=== PATIENT | female | born 1940 | race Caucasian/White ===

== ENCOUNTER 2016-05-19 21:34 | Inpatient (IN) | payer SELFPAY ==
[~2016-05-19] VITALS: Ht 154.9 cm; Wt 58.0 kg
[~2016-05-19 21:34] MED LIST: ADVAI100I PO; DIOV160T60 PO; DUONI INH; LEVA750T PO; LORA1TAB PO; NEBUMIS6 INH; NORV10TA PO; PRED10 PO; PRED5PAK PO; PROT40TA PO; SALBUTAMOL INH; SPIRCAP INH; VENL150T14 PO; Z.0.OXYGENDME NC
[2016-05-19 21:36] VITALS: BP 175/85; PULSE 120; RESP 40; TEMP 98.9; O2SAT 93; O2SAT 95
[2016-05-19 21:40] VITALS: O2SAT 97
[2016-05-19] MEDS ORDERED: AZITHROMYCIN INJ 500 MG in SODIUM CHLOR 0.9% 250 ML INJ 250 ML IV STA (21:41)
[2016-05-19] MEDS ORDERED: CEFEPIME INJ 2,000 MG in SODIUM CHLORIDE 0.9% INJ 100 ML IV STA (21:41)
[2016-05-19] MEDS ORDERED: methylPREDNISolone SOD SUCC 125 MG/2 ML VIAL IV ONE (21:45)
[2016-05-19] MEDS ORDERED: LORazepam 2 MG/ML VIAL IV PUSH ONE (21:45)
[2016-05-19] MEDS ORDERED: MOXI1TAB2 PO (21:46)
[2016-05-19] MEDS ORDERED: ADVA250A INH (21:46)
[2016-05-19] MEDS ORDERED: PRED5TAB PO (21:46)
[2016-05-19] MEDS ORDERED: VENL150T PO (21:46)
[2016-05-19] MEDS ORDERED: VALS1TAB64 PO (21:46)
[2016-05-19] MEDS ORDERED: LORA1TAB12 PO (21:46)
[2016-05-19] MEDS ORDERED: PANT40TA3 PO (21:46)
[2016-05-19] MEDS ORDERED: SODIUM CHLOR 0.9% 1000 ML INJ 1,000 ML IV ONE ×2 (21:52)
[2016-05-19] MEDS ORDERED: SODIUM CHLOR 0.9% 1000 ML INJ 100 ML IV ONE (21:52)
--- NOTE | 2016-05-19 21:52 | PD ---
HPI Chief Complaint: Respiratory Symptoms Time Seen by Provider: 21:41 Travel History International Travel<30 days: No Contact w/Intl Traveler<30days: No Traveled to known affect area: No History of Present Illness HPI Patient is a 76-year-old female with history of COPD, lung cancer still smoking here with complaint of shortness of breath. History is limited due to her respiratory distress. From what I can gather patient had 2 days of increasing cough, shortness of breath, wheezing and respiratory distress. EMS arrived and noticed patient tachypneic with diffuse wheezing bilaterally. Given albuterol 2, 125 mg Solu-Medrol. Little improvement of her symptoms en route. Patient notes subjective fevers last night. PFSH Past Medical History Arthritis: Yes Asthma: Yes Autoimmune Disease: No Anxiety: Yes Depression: Yes Heart Rhythm Problems: No Cancer: Yes (LUNG) Cardiovascular Problems: Yes High Cholesterol: No Chemotherapy: No Chest Pain: No Congestive Heart Failure: No COPD: Yes Cerebrovascular Accident: No Diabetes: No Diminished Hearing: No Endocrine: No GERD: Yes Genitourinary: No Hiatal Hernia: No Hypertension: Yes Immune Disorder: No Kidney Stones: No Musculoskeletal: Yes Neurologic: Yes Psychiatric: Yes Reproductive: No Respiratory: Yes Migraines: No Radiation Therapy: Yes Renal Failure: No Seizures: Yes Sickle Cell Disease: No Sleep Apnea: No Thyroid Disease: No Ulcer: No Past Surgical History Abdominal Surgery: Yes (1990 lining of stomach) AICD: No Arteriovenous Shunt: No Cardiac Surgery: No Ear Surgery: No Endocrine Surgery: No Eye Surgery: No Gynecologic Surgery: Yes (DNC's) Insulin Pump: No Joint Replacement: No Oral Surgery: No Pacemaker: No Thoracic Surgery: No Social History Alcohol Use: Yes (2-3 RUM DRINKS, DAILY; LAST DRINK 02/09/15) Tobacco Use: Yes (1/2 PPD) Substance Use: No Allergies-Medications (Allergen,Severity, Reaction): Coded Allergies: Codeine (Verified Allergy, Severe, SEIZURE, 02/10/15) Reported Meds & Prescriptions Reported Meds & Active Scripts Active Reported Venlafaxine ER 24 HR (Venlafaxine HCl) 150 Mg Tab 150 Mg PO DAILY Lorazepam 1 Mg Tab 1 Mg PO Q8H PRN Moxifloxacin (Moxifloxacin HCl) 400 Mg Tab 400 Mg PO DAILY Pantoprazole (Pantoprazole Sodium) 40 Mg Tab 40 Mg PO BID Prednisone 5 Mg Tab 5 Mg PO DAILY Valsartan 80 Mg Tab 80 Mg PO DAILY Advair Diskus Inh (Fluticasone-Salmeterol Inh) 250-50 Mcg/Blist Aer 2 Puff INH BID Rinse mouth after use. Review of Systems Except as stated in HPI: all other systems reviewed are Neg Physical Exam Narrative GENERAL: Thin female in moderate to severe respiratory distress SKIN: Warm and dry. HEAD: Normocephalic. EYES: No scleral icterus. No injection or drainage. ENT: Mucous membranes pink and moist. NECK: Supple CARDIOVASCULAR: Tachycardic with heart rate in the 120s, regular rhythm. No murmur appreciated. RESPIRATORY: Moderate to severe respiratory distress with tachypnea, prolonged expiratory phase. Speaking in one to 2 word sentences. Diffuse wheezing bilaterally. GASTROINTESTINAL: Abdomen soft, non-tender, nondistended. MUSCULOSKELETAL: No edema. NEUROLOGICAL: Awake and alert. Normal speech. PSYCHIATRIC: Anxious Data Data Last Documented VS Vital Signs Date Time Temp Pulse Resp B/P Pulse Ox O2 Delivery O2 Flow Rate FiO2 05/19/16 23:00 114 35 160/69 97 BiPAP 05/19/16 21:40 50 05/19/16 21:36 98.9 Orders Electrocardiogram (05/19/16 21:41) Complete Blood Count With Diff (05/19/16 21:41) Prothrombin Time / Inr (Pt) (05/19/16 21:41) Act Partial Throm Time (Ptt) (05/19/16 21:41) Lactic Acid Sepsis Protocol (05/19/16 21:41) Magnesium (Mg) (05/19/16 21:41) Troponin I (05/19/16 21:41) Influenzae A/B Antigen (05/19/16 21:41) Blood Culture (05/19/16 21:41) Chest, Single Ap (05/19/16 21:41) Arterial Blood Gas (Abg) (05/19/16 21:41) Ecg Monitoring (05/19/16 21:41) Iv Access Insert/Monitor (05/19/16 21:41) Oximetry (05/19/16 21:41) Cefepime Inj (Maxipime Inj) (05/19/16 21:41) Azithromycin Inj (Zithromax Inj) (05/19/16 21:41) Albuterol-Ipratropium Neb (Duoneb Neb) (05/19/16 21:45) Methylprednisolone So Succ Inj (Solumedr (05/19/16 21:45) Basic Metabolic Panel (Bmp) (05/19/16 21:41) Resp Bipap / Cpap Non Invas Vt (05/19/16 21:41) Lorazepam Inj (Ativan Inj) (05/19/16 21:45) Sodium Chlor 0.9% 1000 Ml Inj (Ns 1000 M (05/19/16 21:52) Sodium Chlor 0.9% 1000 Ml Inj (Ns 1000 M (05/19/16 21:52) Sodium Chlor 0.9% 1000 Ml Inj (Ns 1000 M (05/19/16 21:52) Labs Laboratory Tests Test 05/19/16 22:00 White Blood Count 10.4 TH/MM3 Red Blood Count 4.26 MIL/MM3 Hemoglobin 13.8 GM/DL Hematocrit 40.1 % Mean Corpuscular Volume 94.1 FL Mean Corpuscular Hemoglobin 32.4 PG Mean Corpuscular Hemoglobin 34.5 % Concent Red Cell Distribution Width 12.7 % Platelet Count 380 TH/MM3 Mean Platelet Volume 8.1 FL Neutrophils (%) (Auto) 65.0 % Lymphocytes (%) (Auto) 20.4 % Monocytes (%) (Auto) 12.4 % Eosinophils (%) (Auto) 1.9 % Basophils (%) (Auto) 0.3 % Neutrophils # (Auto) 6.8 TH/MM3 Lymphocytes # (Auto) 2.1 TH/MM3 Monocytes # (Auto) 1.3 TH/MM3 Eosinophils # (Auto) 0.2 TH/MM3 Basophils # (Auto) 0.0 TH/MM3 CBC Comment DIFF FINAL Differential Comment Prothrombin Time 10.7 SEC Prothromb Time International 1.0 RATIO Ratio Activated Partial 32.2 SEC Thromboplast Time Blood Gas Puncture Site RT RADIAL Blood Gas Patient Temperature 98.6 Blood Gas HCO3 27 mmol/L Blood Gas Base Excess 0.3 mmol/L Blood Gas Oxygen Saturation 96 % Arterial Blood pH 7.26 Arterial Blood Partial 61 mmHg Pressure CO2 Arterial Blood Partial 321 mmHG Pressure O2 Arterial Blood Oxygen Content 18.8 Vol % Arterial Blood 1.5 % Carboxyhemoglobin Arterial Blood Methemoglobin 2.1 % Blood Gas Hemoglobin 13.4 G/DL Oxygen Delivery Device BIPAP Blood Gas Ventilator Setting IPAP12 EPAP6 Blood Gas Inspired Oxygen 100 % Sodium Level 135 MEQ/L Potassium Level 4.1 MEQ/L Chloride Level 98 MEQ/L Carbon Dioxide Level 30.5 MEQ/L Anion Gap 7 MEQ/L Blood Urea Nitrogen 10 MG/DL Creatinine 1.30 MG/DL Estimat Glomerular Filtration 40 ML/MIN Rate Random Glucose 115 MG/DL Lactic Acid Level 0.7 mmol/L Calcium Level 9.1 MG/DL Magnesium Level 1.6 MG/DL Troponin I LESS THAN 0.02 NG/ML MDM Medical Decision Making Medical Screen Exam Complete: Yes Emergency Medical Condition: Yes Medical Record Reviewed: Yes Differential Diagnosis 76-year-old female with history of COPD, lung cancer still smoking here with 2 days of increasing shortness of breath, cough and chest congestion. Differential includes COPD exacerbation, hypoxic versus hypercapnic respiratory failure, pneumonia, bronchitis, influenza, pneumothorax, pulmonary embolism arrhythmia, symptomatic anemia, ACS. Narrative Course Patient placed on monitor, IV established and blood obtained. She was placed on BiPAP therapy. Given 1 mg Ativan IV for compliance with BiPAP mask. Given DuoNeb is in-line with BiPAP therapy and empirically treated with cefepime, azithromycin. She retired patient received Solu-Medrol per EMS. CBC, BMP, coags, lactate, magnesium, troponin, influenza, blood cultures, ABG were obtained and notable for respiratory acidosis with pH 7.26, PCO2 61, PO2 321, bicarbonate 27. Portable chest x-ray obtained that by my read shows no acute abnormalities. Twelve-lead EKG shows sinus tachycardia without notable ST abnormalities, normal intervals. Patient felt significantly improved after the above therapy and her work of breathing, wheezing has improved. Patient will be admitted for further management. Critical Care Narrative Aggregate critical care time was 45 minutes. Time to perform other separately billable procedures was not included in the critical care time. My time did not include minutes spent treating any other patients simultaneously or on activities that did not directly contribute to the patient's treatment. The services I provided to this patient were to treat and/or prevent clinically significant deterioration that could result in: Cardio pulmonary decompensation , , disability I provided critical care services requiring my management, as noted below: Chart data review, documentation time, medication orders and management, vital sign assessments/reviewing monitor data, ordering and reviewing lab tests, ordering and interpreting/reviewing x-rays and diagnostic studies, care of the patient and discussion of the patient with the admitting physicians. Sepsis Criteria SIRS Criteria (2 or more): Heart rate over 90, RR > 20 or PaCO2 < 32 Sepsis Criteria (SIRS+source): Infect source susp/known Criteria Outcome: Meets SIRS criteria, Meets sepsis criteria Diagnosis Primary Impression: Hypercapnic respiratory failure Qualified Code: J96.02 - Acute respiratory failure with hypercapnia Additional Impressions: COPD exacerbation Sepsis Qualified Code: A41.9 - Sepsis, due to unspecified organism Respiratory distress Admitting Information Admitting Physician Requests: Admit Judie Herrera MD May 19, 2016 21:51
[2016-05-19] MEDS: RESP: ALBUTEROL 2.5 MG/IPRATROPIUM 0.5 MG NEB (SCH) INH (21:57)
--- NOTE | 2016-05-19 22:17 | RADRPT ---
EXAM DATE/TIME: 05/19/2016 22:04 [facility] COMPARISON: CHEST SINGLE AP, February 11, 2015, 13:13. INDICATIONS : Shortness of breath. MEDICAL HISTORY : Carcinoma, lung. Chronic obstructive pulmonary disease. Emphysema. SURGICAL HISTORY : None. ENCOUNTER: Initial ACUITY: 2 days PAIN SCORE: 0/10 LOCATION: chest FINDINGS: A single view of the chest demonstrates scattered parenchymal scarring similar in appearance to Janob er 2014. No new consolidation or effusion. Heart size normal. CONCLUSION: 1. Scattered parenchymal scarring similar to January 2015, especially in the upper lungs. No new infi ltrate or effusion. Martin Nguyen MD on May 19, 2016 at 22:11 Board Certified Radiologist. This report was verified electronically.
[2016-05-19 22:26] LABS: AUTOMATED NEUTROPHIL # 6.8 TH/MM3 (1.8-7.7); BASOPHIL % 0.3 % (0.0-2.0); EOSINOPHIL # 0.2 TH/MM3 (0-0.4); EOSINOPHIL % 1.9 % (0.0-4.0); HEMATOCRIT 40.1 % (35.0-46.0); HEMO FLAGS DIFF FINAL; LYMPH % 20.4 % (9.0-44.0); LYMPHOCYTE # 2.1 TH/MM3 (1.0-4.8); MEAN CELL VOLUME 94.1 FL (80.0-100.0); MEAN CORPUSCULAR HEMOGLOBIN 32.4 PG (27.0-34.0); MEAN CORPUSCULAR HGB CONC 34.5 % (32.0-36.0); MONO % 12.4 % (0.0-8.0); PLATELET COUNT 380 TH/MM3 (150-450); RED BLOOD COUNT 4.26 MIL/MM3 (4.00-5.30); RED CELL DISTRIBUTION WIDTH 12.7 % (11.6-17.2); WHITE BLOOD COUNT 10.4 TH/MM3 (4.0-11.0)
[2016-05-19 22:48] LABS: ANION GAP 7 MEQ/L (5-15); BICARBONATE 30.5 MEQ/L (21.0-32.0); BLOOD UREA NITROGEN 10 MG/DL (7-18); CHLORIDE 98 MEQ/L (98-107); GLOMERULAR FILTRATION RATE 40 ML/MIN (>89); MAGNESIUM 1.6 MG/DL (1.5-2.5); POTASSIUM 4.1 MEQ/L (3.5-5.1); SODIUM (NA) 135 MEQ/L (136-145)
[2016-05-19 22:55] LABS: APTT (PATIENT) 32.2 SEC (24.3-30.1); PROTHROMBIN TIME - PATIENT 10.7 SEC (9.8-11.6)
[2016-05-19 22:59] VITALS: BP 137/63; PULSE 107; RESP 36; O2SAT 96
[2016-05-19 23:00] VITALS: BP 160/69; PULSE 114; RESP 35; O2SAT 97
[2016-05-19 23:01] LABS: BLOOD GAS BASE EXCESS 0.3 mmol/L (-2-2); BLOOD GAS CARBOXYHEMOGLOBIN 1.5 % (0-4); BLOOD GAS HCO3 27 mmol/L (22-26); BLOOD GAS METHEMOGLOBIN 2.1 % (0-2); BLOOD GAS O2 HGB SATURATION 96 % (90-100); BLOOD GAS OXYGEN CONTENT 18.8 Vol % (12.0-20.0); BLOOD GAS PCO2 61 mmHg (38-42); BLOOD GAS PO2 321 mmHG (61-120); BLOOD GAS TOTAL HGB 13.4 G/DL (12.0-16.0); TEMP CORR TO 98.6
[2016-05-19 23:02] LABS: CRITICAL VALUE YES; DRAW SITE RT RADIAL; NUMBER OF ARTERIAL PUNCTURES 1; OXYGEN DEVICE BIPAP; STAT YES; ULNAR PULSE PRESENT; VENT SETTINGS IPAP12 EPAP6
[2016-05-19 23:04] LABS: FIO2 100 %
[2016-05-19 23:51] LABS: BLOOD GAS CARBOXYHEMOGLOBIN 1.4 % (0-4); BLOOD GAS HCO3 23 mmol/L (22-26); BLOOD GAS METHEMOGLOBIN 1.9 % (0-2); BLOOD GAS O2 HGB SATURATION 92 % (90-100); BLOOD GAS OXYGEN CONTENT 16.3 Vol % (12.0-20.0); BLOOD GAS PCO2 58 mmHg (38-42); BLOOD GAS PO2 88 mmHG (61-120); BLOOD GAS TOTAL HGB 12.6 G/DL (12.0-16.0); DRAW SITE RT RADIAL; FIO2 35 %; NUMBER OF ARTERIAL PUNCTURES 1; OXYGEN DEVICE BIPAP; STAT YES; TEMP CORR TO 98.6; ULNAR PULSE PRESENT; VENT SETTINGS IPAP=12 EPAP=6
[2016-05-19 23:52] LABS: CRITICAL VALUE YES
[2016-05-20] VITALS (22 sets, daily range): BP systolic 119–169; BP diastolic 55–73; PULSE 63–109; RESP 18–35; TEMP 96.7–98; O2SAT 92–99
--- NOTE | 2016-05-20 00:21 | HHI.HP ---
[facility] Service Critical Care Medicine Primary Care Physician Naveed Lopez MD Admission Diagnosis hypercapnic respiratory failure, COPD exacerbation Diagnosis: Travel History International Travel<30 Days: No Contact w/Intl Traveler <30 Da: No Traveled to Known Affected Are: No History of Present Illness History somewhat limited because patient is on Bipap. Removed briefly to clarify code status but she was tachypneic and unable to provide a lot of detail regarding medical history. 76-year-old female with a past medical history of COPD, ongoing tobacco abuse, lung cancer who presents to [facility] emergency department with 2 day history of shortness of breath and cough. She states the cough has been productive of yellow and green sputum. Denies fever. Denies chest pain or hemoptysis. Denies recent travel, leg pain or swelling, or history of VTE. She received Solu-Medrol 125 mg IV. [facility]. She was given hour-long continuous DuoNeb in the ED, cefepime, azithromycin, Ativan 1 mg IV, normal saline 3 L bolus.. She was placed on BiPAP 03/20 with initial FiO2 of 100% for hypercapnic respiratory failure with pH 7.26/PaCO2 of 61/PaCO2 of 321. FiO2 has been weaned and she is currently on 03/20 with FiO2 35% getting tidal volumes in the 200s. Her repeat ABG demonstrates a pH of 7.22/ PaCO2 58/PA O2 of 88. She reports subjective improvement. She indicates that she would desire intubation if needed. Review of Systems ROS Limitations: Clinical Condition Respiratory: COMPLAINS OF: Cough, Wheezing, Sputum production, Shortness of breath Past Family Social History Allergies: Coded Allergies: Codeine (Verified Allergy, Severe, SEIZURE, 02/10/15) Past Medical History CKD stage III COPD Hypertension Depression Anxiety GERD Tobacco abuse Lung cancer Colitis RUL lung nodule on CT chest 02/13/15. Reportedly she was treated for lung cancer with radiation therapy in [place] in December 2015. She states that her terminal clerk and oncologist are in [place]. She states she has also been followed by palliative care in [place]. She states she is not under hospice care. She states that she has full code Past Surgical History She has had an open abdominal surgery, unclear what was done. D and C Reported Medications Prednisone 5 mill grams by mouth daily Valsartan 80 g by mouth daily Venlafaxine ER 150 mg by mouth daily Ativan 1 mg by mouth every 8 hours when necessary anxiety Advair 250/50 micrograms 2 puffs inhaled twice a day Pantoprazole 40 g by mouth twice a day Moxifloxacin 40 mg by mouth daily Family History Unable to obtain family medical history due to patients clinical condition. Social History She has smoked since age 14-1/2 previously smoked one pack per cigarettes per day. Ongoing smoking. She states she is down to 6 cigarettes per day Denies use of illicit drugs She lives in [place] and [place] in [place]. Physical Exam Vital Signs Vital Signs Date Time Temp Pulse Resp B/P Pulse Ox O2 Delivery O2 Flow Rate FiO2 05/19/16 23:00 114 35 160/69 97 BiPAP 05/19/16 22:59 107 36 137/63 96 BiPAP 05/19/16 21:40 97 50 05/19/16 21:36 40 95 BiPAP 05/19/16 21:36 40 95 BiPAP 05/19/16 21:36 98.9 120 40 175/85 93 Physical Exam Temp 98.9. Pulse 108 Respiratory rate 33 BP 169/69 sats 99% GENERAL: Well-nourished, well-developed patient who is laying in the ED gurney wrapped in multiple blankets around her head wearing BiPAP. SKIN: Warm and dry. HEAD: Atraumatic. Normocephalic. EYES: Pupils equal and round. No scleral icterus. No injection or drainage. ENT: BiPAP mask in place. NECK: Trachea midline. No JVD. CARDIOVASCULAR: Tachycardic, regular, sinus tach on the monitor.. No murmurs rubs or gallops. RESPIRATORY: Bilateral expiratory wheeze and prolonged expiration phase. No Rales or rhonchi. On BiPAP 12/6 with tidal volume mid 200s to 300. Adjusted to tidal volume 18/6 at bedside and obtaining vital tidal volume 350-400. GASTROINTESTINAL: Abdomen soft, non-tender, nondistended. There is an upper abdominal scar that is well-healed. Bowel sounds are present. MUSCULOSKELETAL: Extremities without clubbing, cyanosis, or edema. No calf tenderness or palpable cords. NEUROLOGICAL: Awake and answers questions though speech is limited due to respirations status. Moves all extremities without apparent focal deficit. Laboratory Laboratory Tests Test 05/19/16 05/19/16 22:00 23:45 White Blood Count 10.4 Red Blood Count 4.26 Hemoglobin 13.8 Hematocrit 40.1 Mean Corpuscular Volume 94.1 Mean Corpuscular Hemoglobin 32.4 Mean Corpuscular Hemoglobin 34.5 Concent Red Cell Distribution Width 12.7 Platelet Count 380 Mean Platelet Volume 8.1 Neutrophils (%) (Auto) 65.0 Lymphocytes (%) (Auto) 20.4 Monocytes (%) (Auto) 12.4 Eosinophils (%) (Auto) 1.9 Basophils (%) (Auto) 0.3 Neutrophils # (Auto) 6.8 Lymphocytes # (Auto) 2.1 Monocytes # (Auto) 1.3 Eosinophils # (Auto) 0.2 Basophils # (Auto) 0.0 CBC Comment DIFF FINAL Differential Comment Prothrombin Time 10.7 Prothromb Time International 1.0 Ratio Activated Partial 32.2 Thromboplast Time Blood Gas Puncture Site RT RADIAL RT RADIAL Blood Gas Patient Temperature 98.6 98.6 Blood Gas HCO3 27 23 Blood Gas Base Excess 0.3 -4.0 Blood Gas Oxygen Saturation 96 92 Arterial Blood pH 7.26 7.22 Arterial Blood Partial 61 58 Pressure CO2 Arterial Blood Partial 321 88 Pressure O2 Arterial Blood Oxygen Content 18.8 16.3 Arterial Blood 1.5 1.4 Carboxyhemoglobin Arterial Blood Methemoglobin 2.1 1.9 Blood Gas Hemoglobin 13.4 12.6 Oxygen Delivery Device BIPAP BIPAP Blood Gas Ventilator Setting IPAP12 EPAP6 IPAP=12 EPAP=6 Blood Gas Inspired Oxygen 100 35 Sodium Level 135 Potassium Level 4.1 Chloride Level 98 Carbon Dioxide Level 30.5 Anion Gap 7 Blood Urea Nitrogen 10 Creatinine 1.30 Estimat Glomerular Filtration 40 Rate Random Glucose 115 Lactic Acid Level 0.7 Calcium Level 9.1 Magnesium Level 1.6 Troponin I LESS THAN 0.02 Date/Time Procedure Status Source Growth 05/19/16 22:00 Aerobic Blood Culture Received Blood Peripheral Pending 05/19/16 22:00 Anaerobic Blood Culture Received Blood Peripheral Pending Result Diagram: 05/19/16219905/19/162199 Assessment and Plan Assessment and Plan NEURO: Anxiety Depression Continue venlafaxine 150 mg by mouth daily Ativan if needed for Bipap tolerance. RESP: Acute respiratory failure Acute COPD exacerbation History of lung cancer Increased BiPAP settings to 18/6 to achieve target tidal volume of 350-400. Received Solu-Medrol 125 mg IV. [facility]. Continue Solu-Medrol 60 mg IV every 6 hours. DuoNeb every 4 hours. Albuterol every 2 hours when necessary. Antibiotics as per below. CV: Hypertension Monitor hemodynamics. Troponin negative. Lactic acid normal Hold home medication of valsartan 80 mg by mouth daily for now. Labetalol when necessary for systolic blood pressure greater than 160 GI: GERD Nothing by mouth for now. May require intubation FEN/RENAL: Chronic kidney disease stage III Mild asymptomatic hyponatremia Insert Nobles. Monitor I/O. Monitor electrolytes and replace as indicated per electrolyte replacement protocol. ID: Acute COPD exacerbation with acute bronchitis. Chest x-ray demonstrates no infiltrate. Empiric coverage with Levaquin for community acquired organisms. Follow up blood culture. Send sputum culture. HEME: Reported history of lung cancer status post radiation therapy in December 2015 performed in [place]. She denies active cancer. Monitor CBC. ENDO: Chronic steroid use Euglycemic Hold and is on 5 mill grams by mouth daily. Solumedrol as per above PROPH: Lovenox 40 mg subcutaneous daily for stress ulcer prophylaxis. Creatinine clearance is 44. Will adjust Lovenox dose of creatinine clearance drops below 30. Protonix 40 g IV daily for stress ulcer prophylaxis. ACCESS: Peripheral IV providing adequate access at this time. Full code Critical care time 60 minutes exclusive of separately billable procedures. Ariadne Clinton MD May 20, 2016 00:21
[2016-05-20] MEDS ORDERED: ACETAMINOPHEN 325 MG TAB PO PRN (00:30)
[2016-05-20] MEDS ORDERED: MISCELLANEOUS NURSING INFORMATION XX SCH (00:30)
[2016-05-20] MEDS ORDERED: ONDANSETRON HCL 4 MG/2 ML VIAL IV PRN (00:30)
[2016-05-20] MEDS ORDERED: CHLORHEXIDINE GLUCONATE 2 % 1 PACK (2 CLOTHS) TOP PRN (00:30)
[2016-05-20] MEDS ORDERED: RESP: ALBUTEROL 2.5 MG/IPRATROPIUM 0.5 MG NEB (SCH) NEB ONE (00:30)
[2016-05-20] MEDS: methylPREDNISolone SOD SUCC 125 MG/2 ML VIAL IV PUSH SCH ×4 (00:36→19:43)
[2016-05-20] MEDS ORDERED: MAGNESIUM SULFATE INJ 2 GM in SODIUM CHLORIDE 0.9% INJ 96 ML IV PRN (01:00)
[2016-05-20] MEDS ORDERED: MAGNESIUM OXIDE 400 MG TAB PO PRN (01:00)
[2016-05-20] MEDS ORDERED: POTASSIUM PHOSPHATE INJ 30 MMOL in SODIUM CHLOR 0.9% 250 ML INJ 250 ML IV PRN (01:00)
[2016-05-20] MEDS ORDERED: POTASSIUM CHLOR 20 MEQ PREMIX 100 ML IV PRN ×2 (01:00)
[2016-05-20] MEDS ORDERED: POTASSIUM CL 40 MEQ/30 ML LIQ UDC PO/TUBE PRN ×2 (01:00)
[2016-05-20] MEDS ORDERED: POTASSIUM PHOSPHATE MONOBASIC 500 MG TAB PO PRN (01:00)
[2016-05-20] MEDS ORDERED: MAGNESIUM SULFATE INJ 4 GM in SODIUM CHLORIDE 0.9% INJ 92 ML IV PRN (01:00)
[2016-05-20] MEDS ORDERED: POTASSIUM CHLOR 40 MEQ PREMIX 100 ML IV PRN ×2 (01:00)
[2016-05-20] MEDS ORDERED: POTASSIUM PHOSPHATE MONOBASIC 500 MG TAB PO/TUBE PRN (01:00)
[2016-05-20] MEDS ORDERED: SODIUM PHOSPHATE INJ 30 MMOL in SODIUM CHLOR 0.9% 250 ML INJ 240 ML IV PRN (01:00)
[2016-05-20] MEDS: ENOXAPARIN SODIUM 40 MG/0.4 ML SYRINGE SQ SCH (01:19)
[2016-05-20] MEDS: LEVOFLOXACIN 500 MG PREMIX INJ 100 ML IV SCH (01:19)
[2016-05-20] MEDS: RESP: ALBUTEROL 2.5 MG/IPRATROPIUM 0.5 MG NEB (SCH) INH ×5 (03:01→20:00)
[2016-05-20 03:13] LABS: BLOOD GAS CARBOXYHEMOGLOBIN 1.5 % (0-4); BLOOD GAS HCO3 24 mmol/L (22-26); BLOOD GAS O2 HGB SATURATION 93 % (90-100); BLOOD GAS OXYGEN CONTENT 16.5 Vol % (12.0-20.0); BLOOD GAS PCO2 49 mmHg (38-42); BLOOD GAS PO2 96 mmHG (61-120); BLOOD GAS TOTAL HGB 12.5 G/DL (12.0-16.0); CRITICAL VALUE NO; DRAW SITE RT RADIAL; FIO2 35 %; NUMBER OF ARTERIAL PUNCTURES 1; OXYGEN DEVICE BIPAP; STAT YES; TEMP CORR TO 98.6; ULNAR PULSE PRESENT; VENT SETTINGS IPAP=18 EPAP=6
[2016-05-20] MEDS: LORazepam 2 MG/ML VIAL IV PUSH PRN ×3 (03:20→16:25)
[2016-05-20] MEDS: CHLORHEXIDINE GLUCONATE 2 % 1 PACK (2 CLOTHS) TOP SCH (03:54)
[2016-05-20] MEDS ORDERED: DEXTROSE 50% IN WATER 50 ML VIAL(D50) IV PUSH PRN (09:15)
[2016-05-20] MEDS: INSULIN NovoLIN REGULAR SUPPLEMENTAL SCALE SQ SCH ×2 (09:15→12:00)
[2016-05-20] MEDS ORDERED: GLUCAGON 1 MG/ML VIAL OTHER PRN (09:15)
[2016-05-20] MEDS: DOCUSATE SODIUM 100 MG CAP PO SCH ×2 (09:49→19:43)
[2016-05-20] MEDS: SODIUM CHLORIDE 0.9% FLUSH 5 ML FLUSH IV FLUSH SCH ×2 (09:49→19:43)
[2016-05-20] MEDS: PANTOPRAZOLE SODIUM 40 MG VIAL IV SCH (09:49)
[2016-05-20] MEDS: SODIUM CHLOR 0.9% 1000 ML INJ 1,000 ML IV SCH ×2 (09:59→22:35)
[2016-05-20 10:59] LABS: BASOPHIL % 0.1 % (0.0-2.0); HEMATOCRIT 34.5 % (35.0-46.0); HEMO FLAGS DIFF FINAL; LYMPH % 7.9 % (9.0-44.0); LYMPHOCYTE # 0.6 TH/MM3 (1.0-4.8); MEAN CELL VOLUME 95.4 FL (80.0-100.0); MEAN CORPUSCULAR HEMOGLOBIN 33.4 PG (27.0-34.0); MONO % 2.1 % (0.0-8.0); NEUT % 89.9 % (16.0-70.0); PLATELET COUNT 305 TH/MM3 (150-450); RED BLOOD COUNT 3.62 MIL/MM3 (4.00-5.30); RED CELL DISTRIBUTION WIDTH 12.8 % (11.6-17.2); WHITE BLOOD COUNT 7.8 TH/MM3 (4.0-11.0)
[2016-05-20 11:11] LABS: BICARBONATE 25.5 MEQ/L (21.0-32.0); MAGNESIUM 1.5 MG/DL (1.5-2.5); POTASSIUM 4.2 MEQ/L (3.5-5.1)
--- NOTE | 2016-05-20 12:37 | EKG ---
Date Performed: 05/19/2016 Time Performed: 22:43:03 PTAGE: 76 years EKG: SINUS TACHYCARDIA POSSIBLE RIGHT VENTRICULAR CONDUCTION DELAY Since previous tracing, no si gnificant change noted ABNORMAL RHYTHM ECG PREVIOUS TRACING : 02/10/2015 11.54 DOCTOR: Garcia Mares Interpretating Date/Time 05/20/2016 12:36:02
--- NOTE | 2016-05-20 19:40 | MB ---
cc: EMILY SAL MD DATE OF CONSULTATION 05/20/[address] Wesley REASON FOR CONSULTATION Respiratory insufficiency. HISTORY OF THE PRESENT ILLNESS Ms. Beauchamp is a 76-year-old [place] female with history of CA of the lung, COPD, nicotine use. The patient came to the hospital with worsening of her shortness of breath. She has cough and congestion, has yellow-green sputum production. She gets very anxious. The patient was evaluated in the emergency room. She had a blood gas done which shows pH 7.26, PCO2 61, PO2 321. She was on 100% BiPAP, then she was weaned down to 35% BiPap and blood gas pH 7.30, pCO2 49, pO2 96. Now she is weaned to nasal cannula. Her CBC showed WBC count 7.8, hemoglobin 12.1, hematocrit 34.5, MCV 95, platelet count 305. Sodium 130, potassium 4.2, chloride 103, CO2 25, BUN 14, creatinine 1.18. IMAGING Her chest x-ray shows scattered parenchymal scarring in both lungs especially the upper lungs. No infiltrate or effusion. Currently the patient is sleeping and hard to wake. She just had a dose of Ativan. PAST MEDICAL HISTORY Significant for: 1. History of CA of the lung. 2. COPD. 3. Renal insufficiency. 4. Nicotine use. 5. She has received radiation treatment in [place]. MEDICATIONS She is currently takin. Insulin. 2. Protonix 40 mg a daily. 3. Colace 100 milligrams twice a day. 4. Albuterol/Atrovent nebulizer treatment. 5. Solu-Medrol 60 mg q.6h. 6. Levaquin 500 milligrams q.48-hour. 7. Potassium supplement. 8. Lovenox 40 mg a day. ALLERGIES SHE IS ALLERGIC TO CODEINE. SOCIAL HISTORY She has long history of smoking and continues to smoke. She is , lives with her ex-. She worked in customer service. FAMILY HISTORY She has five children. She has lost one child to cancer, it was a peritoneal cancer. REVIEW OF SYSTEMS She denies any weight loss. No headache or dizziness. No deep venous thrombosis or pulmonary embolism. PHYSICAL EXAMINATION GENERAL: Elderly female, mild short of breath. VITAL SIGNS: Blood pressure 164/73, heart rate 105, respiratory rate 18, temperature 98.8. HEENT: Examination pupils are equal and reactive. NECK: Supple. Jugular venous pulse not raised. CHEST: Expiratory rhonchi. CARDIOVASCULAR: S1-S2 normal. ABDOMEN: Soft. Nondistended. Bowel sounds are present. EXTREMITIES: No edema. IMPRESSION 1. COPD exacerbation. 2. Respiratory acidosis. 3. Respiratory insufficiency. 4. Cancer of the lung status post radiation. 5. Nicotine use. 6. Hypertension. PLAN She is on nasal cannula, currently stable. We will use CPAP at night time and as needed. Continue IV Solu-Medrol. Antibiotics. Monitor her electrolytes. Monitor her blood sugar. Wean from the steroids as she tolerates. Monitor blood sugar. Further treatment will depend on the course in the hospital. Thank you Dr. Wesley for this consultation. MD EBONI Santillan/RACIEL /5:34 PM /7:17 PM [facility]
[2016-05-21] VITALS (14 sets, daily range): BP systolic 132–169; BP diastolic 58–72; PULSE 91–108; RESP 24–46; TEMP 97.7–98.3; O2SAT 95–100
[2016-05-21] MEDS: methylPREDNISolone SOD SUCC 125 MG/2 ML VIAL IV PUSH SCH ×4 (00:35→18:20)
[2016-05-21] MEDS: ENOXAPARIN SODIUM 40 MG/0.4 ML SYRINGE SQ SCH (00:35)
[2016-05-21] MEDS: CHLORHEXIDINE GLUCONATE 2 % 1 PACK (2 CLOTHS) TOP SCH (04:00)
[2016-05-21] MEDS: RESP: ALBUTEROL 2.5 MG/IPRATROPIUM 0.5 MG NEB (SCH) INH ×7 (05:05→23:31)
[2016-05-21] MEDS: INSULIN NovoLIN REGULAR SUPPLEMENTAL SCALE SQ SCH ×4 (05:20→18:00)
[2016-05-21] MEDS: LORazepam 2 MG/ML VIAL IV PUSH PRN ×3 (05:43→18:20)
[2016-05-21 06:12] LABS: BASOPHIL # 0.1 TH/MM3 (0-0.2); BASOPHIL % 0.5 % (0.0-2.0); EOSINOPHIL % 0.1 % (0.0-4.0); HEMATOCRIT 36.5 % (35.0-46.0); HEMO FLAGS DIFF FINAL; LYMPH % 8.5 % (9.0-44.0); LYMPHOCYTE # 1.3 TH/MM3 (1.0-4.8); MEAN CELL VOLUME 96.2 FL (80.0-100.0); MEAN CORPUSCULAR HEMOGLOBIN 31.8 PG (27.0-34.0); MEAN CORPUSCULAR HGB CONC 33.1 % (32.0-36.0); NEUT % 85.9 % (16.0-70.0); PLATELET COUNT 338 TH/MM3 (150-450); RED BLOOD COUNT 3.79 MIL/MM3 (4.00-5.30); WHITE BLOOD COUNT 15.1 TH/MM3 (4.0-11.0)
[2016-05-21 06:36] LABS: BICARBONATE 27.3 MEQ/L (21.0-32.0); MAGNESIUM 1.8 MG/DL (1.5-2.5); POTASSIUM 4.2 MEQ/L (3.5-5.1)
[2016-05-21] MEDS: PANTOPRAZOLE SODIUM 40 MG VIAL IV SCH (09:12)
[2016-05-21] MEDS: SODIUM CHLORIDE 0.9% FLUSH 5 ML FLUSH IV FLUSH SCH ×2 (09:12→19:33)
[2016-05-21] MEDS: DOCUSATE SODIUM 100 MG CAP PO SCH ×2 (09:12→19:33)
--- NOTE | 2016-05-21 09:15 | HHI.PR ---
Subjective Remarks still with respiratory distress. on oxygen via N/C @ 3 lit/min. has occasional dry cough. no fever. Objective Vitals Vital Signs Date Time Temp Pulse Resp B/P Pulse Ox O2 Delivery O2 Flow Rate FiO2 05/21/16 08:19 95 Nasal Cannula 05/21/16 06:00 100 05/21/16 04:00 97.7 91 35 132/58 100 05/21/16 04:00 91 05/21/16 02:00 93 05/21/16 00:00 97.7 104 35 136/61 100 05/21/16 00:00 104 05/20/16 22:59 95 Nasal Cannula 3.00 05/20/16 22:00 104 05/20/16 20:00 97.8 101 35 157/73 92 05/20/16 20:00 101 05/20/16 18:00 109 05/20/16 16:00 105 05/20/16 15:00 97.9 109 35 164/73 96 05/20/16 14:00 103 05/20/16 12:00 103 05/20/16 11:00 98.0 63 25 133/72 94 05/20/16 10:00 99 05/20/16 09:13 96 Nasal Cannula 2.00 I/O 05/20/16 05/20/16 05/20/16 05/21/16 05/21/16 05/21/16 07:00 15:00 23:00 07:00 15:00 23:00 Intake Total 350 ml 1080 ml 600 ml Output Total 150 ml 250 ml Balance -150 ml 100 ml 1080 ml 600 ml Intake Oral 200 ml 480 ml IV Total 150 ml 600 ml 600 ml Output Urine Total 150 ml 250 ml # Voids 3 2 Result Diagram: 05/21/16 0552 05/21/16 0552 Imaging Last Impressions Chest X-Ray 05/19/16 214 Signed Impressions: Service Date/Time: Thursday, May 19, 2016 22:04 - CONCLUSION: 1. Scattered parenchymal scarring similar to January 2015, especially in the upper lungs. No new infiltrate or effusion. Martin Nguyen MD Objective Remarks GENERAL: with some respiratory distress. CARDIOVASCULAR: Regular rate and regular rhythm without murmurs, gallops, or rubs. RESPIRATORY: diminished air entry bilaterally with wheezing GASTROINTESTINAL: Abdomen soft, non-tender, nondistended. Normal, active bowel sounds MUSCULOSKELETAL: Extremities without clubbing, cyanosis, or edema. NEURO: Alert & Oriented x4 to person, place, time, situation. Moves all ext x4 Medications and IVs Current Medications Cefepime HCl 2000 mg/Sodium Chloride 100 ml @ 200 mls/hr ONCE STAT IV Last administered on 05/19/16 22:51; Start 05/19/16 at 21:41; Stop 05/19/16 at 22:10; Status DC Azithromycin/ Sodium Chloride (Zithromax Inj/ NS 250 ml Inj) 250 ml @ 250 mls/ hr ONCE STAT IV Last administered on 05/19/16 22:05; Start 05/19/16 at 21:41; Stop 05/19/16 at 22:40; Status DC Albuterol/ Ipratropium (Duoneb Neb) 1 ampule Q15M INH Last administered on 21:57; Start 05/19/16 at 21:45; Stop 05/19/16 at 22:16; Status DC Methylprednisolone Sodium Succinate (SoluMEDROL INJ) 125 mg ONCE ONCE IV ; Start 05/19/16 at 21:45; Stop 05/19/16 at 21:53; Status DC Lorazepam 1 mg 1 mg ONCE ONCE IV PUSH Last administered on 05/19/16 22:04; Start 05/19/16 at 21:45; Stop 05/19/16 at 21:46; Status DC Sodium Chloride 1,000 ml @ 1,000 mls/hr Q1H ONCE IV Last administered on 22:04; Start 05/19/16 at 21:52; Stop 05/19/16 at 22:51; Status DC Sodium Chloride 1,000 ml @ 1,000 mls/hr Q1H ONCE IV Last administered on 22:50; Start 05/19/16 at 21:52; Stop 05/19/16 at 22:51; Status DC Sodium Chloride (NS 1000 ml Inj) 100 ml @ 1,000 mls/hr Q6M ONCE IV Last administered on 05/19/16 23:51; Start 05/19/16 at 21:52; Stop 05/19/16 at 21:57; Status DC Albuterol/ Ipratropium (Duoneb Neb) 2 ampule ONCE ONCE NEB Last administered on 05/20/16 00:35; Start 05/20/16 at 00:30; Stop 05/20/16 at 00:31; Status DC Methylprednisolone Sodium Succinate (SoluMEDROL INJ) 60 mg Q6H IV PUSH Last administered on 05/21/16 05:14; Start 05/20/16 at 01:00 IV Flush (NS Flush) 2 ml UNSCH PRN IV FLUSH FLUSH AFTER USING IV ACCESS; Start 05/20/16 at 00:30 IV Flush (NS Flush) 2 ml BID IV FLUSH Last administered on 05/20/16 09:49; Start 05/20/16 at 09:00 Acetaminophen (Tylenol) 650 mg Q6H PRN PO PAIN 1-10 AND/OR FEVER >101F; Start 05/20/16 at 00:30 Pantoprazole Sodium (Protonix Inj) 40 mg DAILY IV Last administered on 09:49; Start 05/20/16 at 09:00 Ondansetron HCl (Zofran Inj) 4 mg Q6H PRN IV NAUSEA OR VOMITING; Start 05/20/16 at 00:30 Docusate Sodium (Colace) 100 mg BID PO Last administered on 05/20/16 09:49; Start 05/20/16 at 09:00 Albuterol/ Ipratropium (Duoneb Neb) 1 ampule Q4HR NEB INH Last administered on 05/21/16 08:17; Start 05/20/16 at 04:00 Albuterol Sulfate (Albuterol Neb) 2.5 mg Q2HR NEB PRN INH SOB/WHEEZING; Start 05/20/16 at 00:30 Enoxaparin Sodium (Lovenox Inj) 40 mg Q24H SQ Last administered on 05/21/16 00: 35; Start 05/20/16 at 00:30 Miscellaneous Information 1 Q361D XX ; Start 05/20/16 at 00:30 Chlorhexidine Gluconate (Chlorhexidine 2% Cloth) 3 pack Taper DAILY@04 TOP Last administered on 05/21/16 04:00; Start 05/20/16 at 04:00; Stop 05/16/17 at 03: 59 Chlorhexidine Gluconate 3 pack 3 pack UNSCH PRN TOP HYGIENIC CARE; Start at 00:30 Levofloxacin/ Dextrose 100 ml @ 100 mls/hr Q48H IV Last administered on t 01:19; Start 05/20/16 at 01:00 Potassium Chloride 100 ml @ 50 mls/hr Q2H PRN IV For Potassium 2.8 - 3.2 mEq/L ; Start 05/20/16 at 01:00 Potassium Chloride (KCl 20 Meq Premix Inj) 100 ml @ 50 mls/hr Q2H PRN IV For Potassium 2.8 - 3.2 mEq/L; Start 05/20/16 at 01:00 Potassium Chloride 40 meq 40 meq UNSCH PRN PO/TUBE For Potassium 3.3 - 3.5 mEq/ L; Start 05/20/16 at 01:00 Potassium Chloride 100 ml @ 25 mls/hr UNSCH PRN IV For Potassium 3.3 - 3.5 mEq /L; Start 05/20/16 at 01:00 Potassium Chloride 100 ml @ 50 mls/hr Q2H PRN IV For Potassium 3.3 - 3.5 mEq/L ; Start 05/20/16 at 01:00 Magnesium Sulfate/ Sodium Chloride (Magnesium Sulfate Inj/NS Inj) 100 ml @ 50 mls/hr UNSCH PRN IV For Magnesium 0.9 - 1.1 mg/dL; Start 05/20/16 at 01:00 Magnesium Oxide 800 mg 800 mg UNSCH PRN PO For Magnesium 1.2 - 1.6 mg/dL; Start 05/20/16 at 01:00 Magnesium Sulfate/ Sodium Chloride (Magnesium Sulfate Inj/NS Inj) 100 ml @ 50 mls/hr UNSCH PRN IV For Magnesium 1.2 - 1.6 mg/dL; Start 05/20/16 at 01:00 Potassium Phosphate 2000 mg 2,000 mg Q4H PRN PO For Phosphorus < 2.5 mg/dL; Start 05/20/16 at 01:00 Sodium Phosphate/ Sodium Chloride (Sodium Phosphate Inj/NS 250 ml Inj) 250 ml @ 42 mls/hr UNSCH PRN IV For Phosphorus < 2.5 mg/dL; Start 05/20/16 at 01:00 Potassium Chloride (KCl 40 Meq/30 ml Liq) 40 meq UNSCH PRN PO/TUBE SEE LABEL COMMENTS; Start 05/20/16 at 01:00 Potassium Phosphate 2000 mg 2,000 mg UNSCH PRN PO/TUBE SEE LABEL COMMENTS; Start 05/20/16 at 01:00 Potassium Phosphate/Sodium Chloride (Potassium Phosphate Inj/NS 250 ml Inj) 260 ml @ 42 mls/hr UNSCH PRN IV SEE LABEL COMMENTS; Start 05/20/16 at 01:00 Lorazepam (Ativan Inj) 0.5 mg Q6H PRN IV PUSH ANXIETY Last administered on 05:43; Start 05/20/16 at 01:00 Dextrose (D50w (Vial) Inj) 25 ml UNSCH PRN IV PUSH HYPOGLYCEMIA-SEE COMMENTS; Start 05/20/16 at 09:15 Glucagon (Glucagon Inj) 1 mg UNSCH PRN OTHER HYPOGLYCEMIA-SEE COMMENTS; Start 05/20/16 at 09:15 Insulin Human Regular 1 1 Q6HR SQ ; Start 05/20/16 at 09:15 Sodium Chloride (NS 1000 ml Inj) 1,000 ml @ 75 mls/hr [id number] IV Last administered on 05/20/16 22:35; Start 05/20/16 at 09:15 A/P Assessment and Plan A/P Anxiety Depression Continue venlafaxine 150 mg by mouth daily Ativan if needed for Bipap tolerance. Acute hypercapnic respiratory failure Acute COPD exacerbation History of lung cancer continue Solu-Medrol DuoNeb every 4 hours. Albuterol every 2 hours when necessary. Antibiotics as per below. pulmonary following. Hypertension Monitor hemodynamics. Troponin negative. Lactic acid normal Hold home medication of valsartan 80 mg by mouth daily for now. Labetalol when necessary for systolic blood pressure greater than 160 Chronic kidney disease stage III Mild asymptomatic hyponatremia Monitor electrolytes and replace as indicated per electrolyte replacement protocol. Acute COPD exacerbation with acute bronchitis. Chest x-ray demonstrates no infiltrate. Empiric coverage with Levaquin for community acquired organisms. blood cultures negative so far. PROPH: Lovenox 40 mg subcutaneous daily for stress ulcer prophylaxis. . Protonix for stress ulcer prophylaxis. will keep in ICU for close monitoring. Richa Mars MD May 21, 2016 09:15
[2016-05-21] MEDS: VENLAFAXINE HCL XR 75 MG CAP PO SCH (14:59)
--- NOTE | 2016-05-21 19:03 | HHI.PR ---
Subjective Remarks 76 YOWF with COPD exac, resp insuff Still has sob, wheezing Used CPAP , does't like it No Fever Objective Vital Signs Vital Signs Date Time Temp Pulse Resp B/P Pulse Ox O2 Delivery O2 Flow Rate FiO2 05/21/16 18:00 106 05/21/16 16:00 98.3 106 46 169/72 96 05/21/16 16:00 106 05/21/16 14:00 105 05/21/16 12:00 98.1 104 46 137/63 96 05/21/16 12:00 104 05/21/16 10:00 99 05/21/16 08:19 95 Nasal Cannula 05/21/16 08:00 95 05/21/16 08:00 98.1 95 24 154/68 98 05/21/16 06:00 100 05/21/16 04:00 97.7 91 35 132/58 100 05/21/16 04:00 91 05/21/16 02:00 93 05/21/16 00:00 97.7 104 35 136/61 100 05/21/16 00:00 104 05/20/16 22:59 95 Nasal Cannula 3.00 05/20/16 22:00 104 05/20/16 20:00 97.8 101 35 157/73 92 05/20/16 20:00 101 I/O 05/20/16 05/20/16 05/20/16 05/21/16 05/21/16 05/21/16 07:00 15:00 23:00 07:00 15:00 23:00 Intake Total 350 ml 1080 ml 600 ml 851 ml Output Total 150 ml 250 ml Balance -150 ml 100 ml 1080 ml 600 ml 851 ml Intake Oral 200 ml 480 ml 240 ml IV Total 150 ml 600 ml 600 ml 611 ml Output Urine Total 150 ml 250 ml # Voids 3 2 2 Result Diagram: 05/21/1652 05/21/16 0552 Objective Remarks GENERAL: MBMN Wh mild sob SKIN: Warm and dry. HEAD: Normocephalic. EYES: No scleral icterus. No injection or drainage. NECK: Supple, trachea midline. No JVD or lymphadenopathy. CARDIOVASCULAR: Regular rate and rhythm without murmurs, gallops, or rubs. RESPIRATORY: Breath sounds equal bilaterally. No accessory muscle use. Exp rhonchi GASTROINTESTINAL: Abdomen soft, non-tender, nondistended. MUSCULOSKELETAL: No cyanosis, or edema. BACK: Nontender without obvious deformity. No CVA tenderness. A/P Assessment and Plan COPD Exac Resp insuff Resp acidosis Anxiety Nicotine use H/O Ca lung PLAN: IV Solumedrol monitor BS Cont Levaquin Aerosol nebs Symbicort 2 puffs bid CPAP pRN Dawood Love MD May 21, 2016 19:03
[2016-05-21] MEDS: BUDESONIDE-FORMOTEROL 160/4.5 MCG INHALER INH SCH (19:33)
[2016-05-22] VITALS (15 sets, daily range): BP systolic 142–202; BP diastolic 69–87; PULSE 90–109; RESP 20–38; TEMP 97.4–99.2; O2SAT 93–100
[2016-05-22] MEDS: LEVOFLOXACIN 500 MG PREMIX INJ 100 ML IV SCH (00:10)
[2016-05-22] MEDS: LORazepam 2 MG/ML VIAL IV PUSH PRN ×4 (00:10→19:40)
[2016-05-22] MEDS: ENOXAPARIN SODIUM 40 MG/0.4 ML SYRINGE SQ SCH (00:10)
[2016-05-22] MEDS: methylPREDNISolone SOD SUCC 125 MG/2 ML VIAL IV PUSH SCH ×4 (01:00→18:31)
[2016-05-22] MEDS: SODIUM CHLOR 0.9% 1000 ML INJ 1,000 ML IV SCH ×3 (01:15→23:18)
[2016-05-22] MEDS: RESP: ALBUTEROL 2.5 MG/IPRATROPIUM 0.5 MG NEB (SCH) INH ×5 (03:53→20:43)
[2016-05-22] MEDS: CHLORHEXIDINE GLUCONATE 2 % 1 PACK (2 CLOTHS) TOP SCH (04:00)
[2016-05-22] MEDS: INSULIN NovoLIN REGULAR SUPPLEMENTAL SCALE SQ SCH ×4 (06:00→18:00)
--- NOTE | 2016-05-22 08:14 | HHI.PR ---
Subjective Remarks still with some sob but in no acute distress. still somewhat tachypneic. no fever. Objective Vitals Vital Signs Date Time Temp Pulse Resp B/P Pulse Ox O2 Delivery O2 Flow Rate FiO2 05/22/16 06:00 93 05/22/16 04:00 97.8 90 30 142/69 100 05/22/16 04:00 90 05/22/16 02:00 95 05/22/16 00:00 106 05/22/16 00:00 98.2 106 29 165/74 93 05/21/16 22:00 108 05/21/16 20:23 98 Nasal Cannula 3.00 05/21/16 20:00 97.7 101 28 152/70 98 05/21/16 20:00 101 05/21/16 18:00 106 05/21/16 16:00 98.3 106 46 169/72 96 05/21/16 16:00 106 05/21/16 14:00 105 05/21/16 12:00 98.1 104 46 137/63 96 05/21/16 12:00 104 05/21/16 10:00 99 05/21/16 08:19 95 Nasal Cannula I/O 05/21/16 05/21/16 05/21/16 05/22/16 05/22/16 05/22/16 07:00 15:00 23:00 07:00 15:00 23:00 Intake Total 600 ml 851 ml 1018 ml 678 ml Balance 600 ml 851 ml 1018 ml 678 ml Intake Oral 240 ml 480 ml 240 ml IV Total 600 ml 611 ml 538 ml 438 ml # Voids 2 2 2 2 Result Diagram: 05/21/16 0552 05/21/16 0552 Imaging Last Impressions Chest X-Ray 05/19/16 214 Signed Impressions: Service Date/Time: Thursday, May 19, 2016 22:04 - CONCLUSION: 1. Scattered parenchymal scarring similar to January 2015, especially in the upper lungs. No new infiltrate or effusion. Martin Nguyen MD Objective Remarks GENERAL: with some respiratory distress. CARDIOVASCULAR: Regular rate and regular rhythm without murmurs, gallops, or rubs. RESPIRATORY: diminished air entry bilaterally with wheezing GASTROINTESTINAL: Abdomen soft, non-tender, nondistended. Normal, active bowel sounds MUSCULOSKELETAL: Extremities without clubbing, cyanosis, or edema. NEURO: Alert & Oriented x4 to person, place, time, situation. Moves all ext x4 Medications and IVs Current Medications Cefepime HCl 2000 mg/Sodium Chloride 100 ml @ 200 mls/hr ONCE STAT IV Last administered on 05/19/16 22:51; Start 05/19/16 at 21:41; Stop 05/19/16 at 22:10; Status DC Azithromycin/ Sodium Chloride (Zithromax Inj/ NS 250 ml Inj) 250 ml @ 250 mls/ hr ONCE STAT IV Last administered on 05/19/16 22:05; Start 05/19/16 at 21:41; Stop 05/19/16 at 22:40; Status DC Albuterol/ Ipratropium (Duoneb Neb) 1 ampule Q15M INH Last administered on 21:57; Start 05/19/16 at 21:45; Stop 05/19/16 at 22:16; Status DC Methylprednisolone Sodium Succinate (SoluMEDROL INJ) 125 mg ONCE ONCE IV ; Start 05/19/16 at 21:45; Stop 05/19/16 at 21:53; Status DC Lorazepam 1 mg 1 mg ONCE ONCE IV PUSH Last administered on 05/19/16 22:04; Start 05/19/16 at 21:45; Stop 05/19/16 at 21:46; Status DC Sodium Chloride 1,000 ml @ 1,000 mls/hr Q1H ONCE IV Last administered on 22:04; Start 05/19/16 at 21:52; Stop 05/19/16 at 22:51; Status DC Sodium Chloride 1,000 ml @ 1,000 mls/hr Q1H ONCE IV Last administered on 22:50; Start 05/19/16 at 21:52; Stop 05/19/16 at 22:51; Status DC Sodium Chloride (NS 1000 ml Inj) 100 ml @ 1,000 mls/hr Q6M ONCE IV Last administered on 05/19/16 23:51; Start 05/19/16 at 21:52; Stop 05/19/16 at 21:57; Status DC Albuterol/ Ipratropium (Duoneb Neb) 2 ampule ONCE ONCE NEB Last administered on 05/20/16 00:35; Start 05/20/16 at 00:30; Stop 05/20/16 at 00:31; Status DC Methylprednisolone Sodium Succinate (SoluMEDROL INJ) 60 mg Q6H IV PUSH Last administered on 05/22/16 06:26; Start 05/20/16 at 01:00 IV Flush (NS Flush) 2 ml UNSCH PRN IV FLUSH FLUSH AFTER USING IV ACCESS; Start 05/20/16 at 00:30 IV Flush (NS Flush) 2 ml BID IV FLUSH Last administered on 05/21/16 19:33; Start 05/20/16 at 09:00 Acetaminophen (Tylenol) 650 mg Q6H PRN PO PAIN 1-10 AND/OR FEVER >101F; Start 05/20/16 at 00:30 Pantoprazole Sodium (Protonix Inj) 40 mg DAILY IV Last administered on 09:12; Start 05/20/16 at 09:00 Ondansetron HCl (Zofran Inj) 4 mg Q6H PRN IV NAUSEA OR VOMITING; Start 05/20/16 at 00:30 Docusate Sodium (Colace) 100 mg BID PO Last administered on 05/21/16 19:33; Start 05/20/16 at 09:00 Albuterol/ Ipratropium (Duoneb Neb) 1 ampule Q4HR NEB INH Last administered on 05/22/16 03:53; Start 05/20/16 at 04:00 Albuterol Sulfate (Albuterol Neb) 2.5 mg Q2HR NEB PRN INH SOB/WHEEZING; Start 05/20/16 at 00:30 Enoxaparin Sodium (Lovenox Inj) 40 mg Q24H SQ Last administered on 05/22/16 00: 10; Start 05/20/16 at 00:30 Miscellaneous Information 1 Q361D XX ; Start 05/20/16 at 00:30 Chlorhexidine Gluconate (Chlorhexidine 2% Cloth) 3 pack Taper DAILY@04 TOP Last administered on 05/22/16 04:00; Start 05/20/16 at 04:00; Stop 05/16/17 at 03: 59 Chlorhexidine Gluconate 3 pack 3 pack UNSCH PRN TOP HYGIENIC CARE; Start at 00:30 Levofloxacin/ Dextrose 100 ml @ 100 mls/hr Q48H IV Last administered on t 00:10; Start 05/20/16 at 01:00 Potassium Chloride 100 ml @ 50 mls/hr Q2H PRN IV For Potassium 2.8 - 3.2 mEq/L ; Start 05/20/16 at 01:00 Potassium Chloride (KCl 20 Meq Premix Inj) 100 ml @ 50 mls/hr Q2H PRN IV For Potassium 2.8 - 3.2 mEq/L; Start 05/20/16 at 01:00 Potassium Chloride 40 meq 40 meq UNSCH PRN PO/TUBE For Potassium 3.3 - 3.5 mEq/ L; Start 05/20/16 at 01:00 Potassium Chloride 100 ml @ 25 mls/hr UNSCH PRN IV For Potassium 3.3 - 3.5 mEq /L; Start 05/20/16 at 01:00 Potassium Chloride 100 ml @ 50 mls/hr Q2H PRN IV For Potassium 3.3 - 3.5 mEq/L ; Start 05/20/16 at 01:00 Magnesium Sulfate/ Sodium Chloride (Magnesium Sulfate Inj/NS Inj) 100 ml @ 50 mls/hr UNSCH PRN IV For Magnesium 0.9 - 1.1 mg/dL; Start 05/20/16 at 01:00 Magnesium Oxide 800 mg 800 mg UNSCH PRN PO For Magnesium 1.2 - 1.6 mg/dL; Start 05/20/16 at 01:00 Magnesium Sulfate/ Sodium Chloride (Magnesium Sulfate Inj/NS Inj) 100 ml @ 50 mls/hr UNSCH PRN IV For Magnesium 1.2 - 1.6 mg/dL; Start 05/20/16 at 01:00 Potassium Phosphate 2000 mg 2,000 mg Q4H PRN PO For Phosphorus < 2.5 mg/dL; Start 05/20/16 at 01:00 Sodium Phosphate/ Sodium Chloride (Sodium Phosphate Inj/NS 250 ml Inj) 250 ml @ 42 mls/hr UNSCH PRN IV For Phosphorus < 2.5 mg/dL; Start 05/20/16 at 01:00 Potassium Chloride (KCl 40 Meq/30 ml Liq) 40 meq UNSCH PRN PO/TUBE SEE LABEL COMMENTS; Start 05/20/16 at 01:00 Potassium Phosphate 2000 mg 2,000 mg UNSCH PRN PO/TUBE SEE LABEL COMMENTS; Start 05/20/16 at 01:00 Potassium Phosphate/Sodium Chloride (Potassium Phosphate Inj/NS 250 ml Inj) 260 ml @ 42 mls/hr UNSCH PRN IV SEE LABEL COMMENTS; Start 05/20/16 at 01:00 Lorazepam (Ativan Inj) 0.5 mg Q6H PRN IV PUSH ANXIETY Last administered on 06:25; Start 05/20/16 at 01:00 Dextrose (D50w (Vial) Inj) 25 ml UNSCH PRN IV PUSH HYPOGLYCEMIA-SEE COMMENTS; Start 05/20/16 at 09:15 Glucagon (Glucagon Inj) 1 mg UNSCH PRN OTHER HYPOGLYCEMIA-SEE COMMENTS; Start 05/20/16 at 09:15 Insulin Human Regular 1 1 Q6HR SQ Last administered on 05/21/16 18:00; Start at 09:15 Sodium Chloride (NS 1000 ml Inj) 1,000 ml @ 75 mls/hr [id number] IV Last administered on 05/22/16 01:15; Start 05/20/16 at 09:15 Venlafaxine HCl (Effexor Xr) 150 mg DAILY PO Last administered on 05/21/16 14: 59; Start 05/21/16 at 14:00 Budesonide/ Formoterol Fumarate (Symbicort 160-4.5 Inh) 2 puff BID INH Last administered on 05/21/16 19:33; Start 05/21/16 at 21:00 A/P Assessment and Plan A/P Anxiety Depression Continue venlafaxine 150 mg by mouth daily Ativan if needed for Bipap tolerance. Acute hypercapnic respiratory failure Acute COPD exacerbation History of lung cancer continue Solu-Medrol DuoNeb every 4 hours. Albuterol every 2 hours when necessary. Antibiotics as per below. pulmonary following. Hypertension Monitor hemodynamics. Troponin negative. Lactic acid normal resume Valsartan. Labetalol when necessary for systolic blood pressure greater than 160 Chronic kidney disease stage III Mild asymptomatic hyponatremia Monitor electrolytes and replace as indicated per electrolyte replacement protocol. Acute COPD exacerbation with acute bronchitis. Chest x-ray demonstrates no infiltrate. Empiric coverage with Levaquin for community acquired organisms. blood cultures negative so far. PROPH: Lovenox 40 mg subcutaneous daily for stress ulcer prophylaxis. . Protonix for stress ulcer prophylaxis. will transfer to telemetry if ok with pulmonary. Richa Mars MD May 22, 2016 08:14
[2016-05-22] MEDS: SODIUM CHLORIDE 0.9% FLUSH 5 ML FLUSH IV FLUSH SCH ×2 (08:40→19:40)
[2016-05-22] MEDS: DOCUSATE SODIUM 100 MG CAP PO SCH ×3 (08:40→22:34)
[2016-05-22] MEDS: PANTOPRAZOLE SODIUM 40 MG VIAL IV SCH (08:40)
[2016-05-22] MEDS: BUDESONIDE-FORMOTEROL 160/4.5 MCG INHALER INH SCH ×2 (08:40→19:41)
[2016-05-22] MEDS: VENLAFAXINE HCL XR 75 MG CAP PO SCH (08:40)
[2016-05-22] MEDS: VALSARTAN 80 MG TAB PO SCH (11:58)
--- NOTE | 2016-05-22 20:02 | HHI.PR ---
Subjective Remarks 76 YOWF with COPD exac, resp insuff Still has sob, wheezing improving Feels comfortable No Fever Objective Vital Signs Vital Signs Date Time Temp Pulse Resp B/P Pulse Ox O2 Delivery O2 Flow Rate FiO2 05/22/16 18:00 100 05/22/16 16:00 99.2 93 33 167/78 93 05/22/16 16:00 93 05/22/16 14:00 109 05/22/16 12:00 105 05/22/16 12:00 98.8 105 38 202/87 94 05/22/16 10:00 99 05/22/16 08:15 99 Nasal Cannula 3.00 05/22/16 08:00 97.4 101 35 176/84 94 05/22/16 08:00 101 05/22/16 06:00 93 05/22/16 04:00 97.8 90 30 142/69 100 05/22/16 04:00 90 05/22/16 02:00 95 05/22/16 00:00 106 05/22/16 00:00 98.2 106 29 165/74 93 05/21/16 22:00 108 05/21/16 20:23 98 Nasal Cannula 3.00 I/O 05/21/16 05/21/16 05/21/16 05/22/16 05/22/16 05/22/16 07:00 15:00 23:00 07:00 15:00 23:00 Intake Total 600 ml 851 ml 1018 ml 678 ml 480 ml Balance 600 ml 851 ml 1018 ml 678 ml 480 ml Intake Oral 240 ml 480 ml 240 ml 480 ml IV Total 600 ml 611 ml 538 ml 438 ml # Voids 2 2 2 2 1 Result Diagram: 05/21/16 0552 05/21/16 0552 Objective Remarks GENERAL: MBMN Wh mild sob SKIN: Warm and dry. HEAD: Normocephalic. EYES: No scleral icterus. No injection or drainage. NECK: Supple, trachea midline. No JVD or lymphadenopathy. CARDIOVASCULAR: Regular rate and rhythm without murmurs, gallops, or rubs. RESPIRATORY: Breath sounds equal bilaterally. No accessory muscle use. Exp rhonchi GASTROINTESTINAL: Abdomen soft, non-tender, nondistended. MUSCULOSKELETAL: No cyanosis, or edema. BACK: Nontender without obvious deformity. No CVA tenderness. A/P Assessment and Plan COPD Exac Resp insuff Resp acidosis Anxiety Nicotine use H/O Ca lung PLAN: IV Solumedrol monitor BS Cont Levaquin Aerosol nebs Symbicort 2 puffs bid Stable to tr to floor Dawood Love MD May 22, 2016 20:02
[2016-05-22] MEDS: SODIUM CHLORIDE 0.9% FLUSH 5 ML FLUSH IV FLUSH PRN (23:19)
[2016-05-23] VITALS (9 sets, daily range): BP systolic 136–161; BP diastolic 74–92; PULSE 91–110; RESP 18–28; TEMP 96–97.5; O2SAT 93–98
[2016-05-23] MEDS: ENOXAPARIN SODIUM 40 MG/0.4 ML SYRINGE SQ SCH (00:39)
[2016-05-23] MEDS: methylPREDNISolone SOD SUCC 125 MG/2 ML VIAL IV PUSH SCH ×4 (00:41→17:50)
[2016-05-23] MEDS: LORazepam 2 MG/ML VIAL IV PUSH PRN ×3 (00:47→17:50)
[2016-05-23] MEDS: CHLORHEXIDINE GLUCONATE 2 % 1 PACK (2 CLOTHS) TOP SCH (00:48)
[2016-05-23] MEDS: RESP: ALBUTEROL 2.5 MG/IPRATROPIUM 0.5 MG NEB (SCH) INH ×7 (00:49→23:41)
[2016-05-23] MEDS: INSULIN NovoLIN REGULAR SUPPLEMENTAL SCALE SQ SCH ×4 (05:46→17:24)
[2016-05-23] MEDS: SODIUM CHLORIDE 0.9% FLUSH 5 ML FLUSH IV FLUSH PRN (06:17)
[2016-05-23] MEDS: SODIUM CHLORIDE 0.9% FLUSH 5 ML FLUSH IV FLUSH SCH ×2 (09:00→20:46)
[2016-05-23] MEDS: DOCUSATE SODIUM 100 MG CAP PO SCH ×2 (09:00→20:46)
[2016-05-23] MEDS: VALSARTAN 80 MG TAB PO SCH (09:33)
[2016-05-23] MEDS: VENLAFAXINE HCL XR 75 MG CAP PO SCH (09:33)
[2016-05-23] MEDS: BUDESONIDE-FORMOTEROL 160/4.5 MCG INHALER INH SCH ×2 (09:34→20:46)
[2016-05-23] MEDS: PANTOPRAZOLE SODIUM 40 MG VIAL IV SCH (09:34)
--- NOTE | 2016-05-23 09:50 | HHI.PR ---
Subjective Remarks in no acute distress but with some sob. remains afebrile. no other new complaints. Objective Vitals Vital Signs Date Time Temp Pulse Resp B/P Pulse Ox O2 Delivery O2 Flow Rate FiO2 05/23/16 08:00 96.6 100 28 141/84 93 05/23/16 07:23 98 Nasal Cannula 3.00 05/23/16 04:00 97.5 93 18 153/81 97 05/23/16 04:00 96 Nasal Cannula 3.00 05/23/16 00:51 98 Nasal Cannula 3.00 05/23/16 00:00 96.3 91 18 142/74 98 05/22/16 23:33 93 05/22/16 22:30 97.8 108 20 166/80 96 05/22/16 20:43 94 Nasal Cannula 2.00 05/22/16 20:00 98.7 96 30 166/77 93 05/22/16 20:00 96 05/22/16 18:00 100 05/22/16 16:00 99.2 93 33 167/78 93 05/22/16 16:00 93 05/22/16 14:00 109 05/22/16 12:00 105 05/22/16 12:00 98.8 105 38 202/87 94 05/22/16 10:00 99 I/O 05/22/16 05/22/16 05/22/16 05/23/16 05/23/16 05/23/16 07:00 15:00 23:00 07:00 15:00 23:00 Intake Total 678 ml 480 ml 100 ml Balance 678 ml 480 ml 100 ml Intake Oral 240 ml 480 ml 100 ml IV Total 438 ml # Voids 2 1 4 Result Diagram: 05/21/16 0552 05/21/16 0552 Imaging Last Impressions Chest X-Ray 05/19/16 2141 Signed Impressions: Service Date/Time: Thursday, May 19, 2016 22:04 - CONCLUSION: 1. Scattered parenchymal scarring similar to January 2015, especially in the upper lungs. No new infiltrate or effusion. Martin Nguyen MD Objective Remarks GENERAL: with some respiratory distress. CARDIOVASCULAR: Regular rate and regular rhythm without murmurs, gallops, or rubs. RESPIRATORY: diminished air entry bilaterally with wheezing GASTROINTESTINAL: Abdomen soft, non-tender, nondistended. Normal, active bowel sounds MUSCULOSKELETAL: Extremities without clubbing, cyanosis, or edema. NEURO: Alert & Oriented x4 to person, place, time, situation. Moves all ext x4 Medications and IVs Current Medications Cefepime HCl 2000 mg/Sodium Chloride 100 ml @ 200 mls/hr ONCE STAT IV Last administered on 05/19/16 22:51; Start 05/19/16 at 21:41; Stop 05/19/16 at 22:10; Status DC Azithromycin/ Sodium Chloride (Zithromax Inj/ NS 250 ml Inj) 250 ml @ 250 mls/ hr ONCE STAT IV Last administered on 05/19/16 22:05; Start 05/19/16 at 21:41; Stop 05/19/16 at 22:40; Status DC Albuterol/ Ipratropium (Duoneb Neb) 1 ampule Q15M INH Last administered on 21:57; Start 05/19/16 at 21:45; Stop 05/19/16 at 22:16; Status DC Methylprednisolone Sodium Succinate (SoluMEDROL INJ) 125 mg ONCE ONCE IV ; Start 05/19/16 at 21:45; Stop 05/19/16 at 21:53; Status DC Lorazepam 1 mg 1 mg ONCE ONCE IV PUSH Last administered on 05/19/16 22:04; Start 05/19/16 at 21:45; Stop 05/19/16 at 21:46; Status DC Sodium Chloride 1,000 ml @ 1,000 mls/hr Q1H ONCE IV Last administered on 22:04; Start 05/19/16 at 21:52; Stop 05/19/16 at 22:51; Status DC Sodium Chloride 1,000 ml @ 1,000 mls/hr Q1H ONCE IV Last administered on 22:50; Start 05/19/16 at 21:52; Stop 05/19/16 at 22:51; Status DC Sodium Chloride (NS 1000 ml Inj) 100 ml @ 1,000 mls/hr Q6M ONCE IV Last administered on 05/19/16 23:51; Start 05/19/16 at 21:52; Stop 05/19/16 at 21:57; Status DC Albuterol/ Ipratropium (Duoneb Neb) 2 ampule ONCE ONCE NEB Last administered on 05/20/16 00:35; Start 05/20/16 at 00:30; Stop 05/20/16 at 00:31; Status DC Methylprednisolone Sodium Succinate (SoluMEDROL INJ) 60 mg Q6H IV PUSH Last administered on 05/23/16 06:12; Start 05/20/16 at 01:00 IV Flush (NS Flush) 2 ml UNSCH PRN IV FLUSH FLUSH AFTER USING IV ACCESS Last administered on 05/23/16 06:17; Start 05/20/16 at 00:30 IV Flush (NS Flush) 2 ml BID IV FLUSH Last administered on 05/22/16 19:40; Start 05/20/16 at 09:00 Acetaminophen (Tylenol) 650 mg Q6H PRN PO PAIN 1-10 AND/OR FEVER >101F; Start 05/20/16 at 00:30 Pantoprazole Sodium (Protonix Inj) 40 mg DAILY IV Last administered on 09:34; Start 05/20/16 at 09:00 Ondansetron HCl (Zofran Inj) 4 mg Q6H PRN IV NAUSEA OR VOMITING; Start 05/20/16 at 00:30 Docusate Sodium (Colace) 100 mg BID PO Last administered on 05/22/16 22:34; Start 05/20/16 at 09:00 Albuterol/ Ipratropium (Duoneb Neb) 1 ampule Q4HR NEB INH Last administered on 05/23/16 07:21; Start 05/20/16 at 04:00 Albuterol Sulfate (Albuterol Neb) 2.5 mg Q2HR NEB PRN INH SOB/WHEEZING; Start 05/20/16 at 00:30 Enoxaparin Sodium (Lovenox Inj) 40 mg Q24H SQ Last administered on 05/23/16 00: 39; Start 05/20/16 at 00:30 Miscellaneous Information 1 Q361D XX ; Start 05/20/16 at 00:30 Chlorhexidine Gluconate (Chlorhexidine 2% Cloth) 3 pack Taper DAILY@04 TOP Last administered on 05/23/16 00:48; Start 05/20/16 at 04:00; Stop 05/16/17 at 03: 59 Chlorhexidine Gluconate 3 pack 3 pack UNSCH PRN TOP HYGIENIC CARE; Start at 00:30 Levofloxacin/ Dextrose 100 ml @ 100 mls/hr Q48H IV Last administered on t 00:10; Start 05/20/16 at 01:00 Potassium Chloride 100 ml @ 50 mls/hr Q2H PRN IV For Potassium 2.8 - 3.2 mEq/L ; Start 05/20/16 at 01:00; Stop 05/22/16 at 08:17; Status DC Potassium Chloride (KCl 20 Meq Premix Inj) 100 ml @ 50 mls/hr Q2H PRN IV For Potassium 2.8 - 3.2 mEq/L; Start 05/20/16 at 01:00; Stop 05/22/16 at 08:17; Status DC Potassium Chloride 40 meq 40 meq UNSCH PRN PO/TUBE For Potassium 3.3 - 3.5 mEq/ L; Start 05/20/16 at 01:00; Stop 05/22/16 at 08:17; Status DC Potassium Chloride 100 ml @ 25 mls/hr UNSCH PRN IV For Potassium 3.3 - 3.5 mEq /L; Start 05/20/16 at 01:00; Stop 05/22/16 at 08:17; Status DC Potassium Chloride 100 ml @ 50 mls/hr Q2H PRN IV For Potassium 3.3 - 3.5 mEq/L ; Start 05/20/16 at 01:00; Stop 05/22/16 at 08:18; Status DC Magnesium Sulfate/ Sodium Chloride (Magnesium Sulfate Inj/NS Inj) 100 ml @ 50 mls/hr UNSCH PRN IV For Magnesium 0.9 - 1.1 mg/dL; Start 05/20/16 at 01:00; Stop 05/22/16 at 08:18; Status DC Magnesium Oxide 800 mg 800 mg UNSCH PRN PO For Magnesium 1.2 - 1.6 mg/dL; Start 05/20/16 at 01:00; Stop 05/22/16 at 08:19; Status DC Magnesium Sulfate/ Sodium Chloride (Magnesium Sulfate Inj/NS Inj) 100 ml @ 50 mls/hr UNSCH PRN IV For Magnesium 1.2 - 1.6 mg/dL; Start 05/20/16 at 01:00; Stop 05/22/16 at 08:19; Status DC Potassium Phosphate 2000 mg 2,000 mg Q4H PRN PO For Phosphorus < 2.5 mg/dL; Start 05/20/16 at 01:00; Stop 05/22/16 at 08:19; Status DC Sodium Phosphate/ Sodium Chloride (Sodium Phosphate Inj/NS 250 ml Inj) 250 ml @ 42 mls/hr UNSCH PRN IV For Phosphorus < 2.5 mg/dL; Start 05/20/16 at 01:00; Stop 05/22/16 at 08:19; Status DC Potassium Chloride (KCl 40 Meq/30 ml Liq) 40 meq UNSCH PRN PO/TUBE SEE LABEL COMMENTS; Start 05/20/16 at 01:00; Stop 05/22/16 at 08:19; Status DC Potassium Phosphate 2000 mg 2,000 mg UNSCH PRN PO/TUBE SEE LABEL COMMENTS; Start 05/20/16 at 01:00; Stop 05/22/16 at 08:19; Status DC Potassium Phosphate/Sodium Chloride (Potassium Phosphate Inj/NS 250 ml Inj) 260 ml @ 42 mls/hr UNSCH PRN IV SEE LABEL COMMENTS; Start 05/20/16 at 01:00; Stop 05/22/16 at 08:19; Status DC Lorazepam (Ativan Inj) 0.5 mg Q6H PRN IV PUSH ANXIETY Last administered on 00:47; Start 05/20/16 at 01:00 Dextrose (D50w (Vial) Inj) 25 ml UNSCH PRN IV PUSH HYPOGLYCEMIA-SEE COMMENTS; Start 05/20/16 at 09:15 Glucagon (Glucagon Inj) 1 mg UNSCH PRN OTHER HYPOGLYCEMIA-SEE COMMENTS; Start 05/20/16 at 09:15 Insulin Human Regular 1 1 Q6HR SQ Last administered on 05/21/16 18:00; Start at 09:15 Sodium Chloride (NS 1000 ml Inj) 1,000 ml @ 75 mls/hr [id number] IV Last administered on 05/22/16 23:18; Start 05/20/16 at 09:15 Venlafaxine HCl (Effexor Xr) 150 mg DAILY PO Last administered on 05/23/16 09: 33; Start 05/21/16 at 14:00 Budesonide/ Formoterol Fumarate (Symbicort 160-4.5 Inh) 2 puff BID INH Last administered on 05/23/16 09:34; Start 05/21/16 at 21:00 Valsartan (Diovan) 80 mg DAILY PO Last administered on 05/23/16 09:33; Start at 10:00 A/P Assessment and Plan A/P Acute hypercapnic respiratory failure due to COPD exacerbation Acute COPD exacerbation History of lung cancer continue Solu-Medrol DuoNeb every 4 hours. Albuterol every 2 hours when necessary. Antibiotics as per below. pulmonary following. Hypertension Monitor hemodynamics. Troponin negative. Lactic acid normal resumed Valsartan. Chronic kidney disease stage III Mild asymptomatic hyponatremia Monitor electrolytes and replace as needed. Anxiety Depression Continue venlafaxine 150 mg by mouth daily Ativan if needed for Bipap tolerance. DVT/ GI prophylaxis with lovenox/protonix will consult PT. Richa Mars MD May 23, 2016 09:50
--- NOTE | 2016-05-23 16:46 | HHI.PR ---
Subjective Remarks 76 YOWF with COPD exac, resp insuff wheezing improving Feels comfortable No Fever Less sob Daughters at BS Objective Vital Signs Vital Signs Date Time Temp Pulse Resp B/P Pulse Ox O2 Delivery O2 Flow Rate FiO2 05/23/16 16:00 97.0 110 24 159/92 96 05/23/16 13:00 96.0 94 24 136/74 95 05/23/16 08:00 96.6 100 28 141/84 93 05/23/16 07:23 98 Nasal Cannula 3.00 05/23/16 04:00 97.5 93 18 153/81 97 05/23/16 04:00 96 Nasal Cannula 3.00 05/23/16 00:51 98 Nasal Cannula 3.00 05/23/16 00:00 96.3 91 18 142/74 98 05/22/16 23:33 93 05/22/16 22:30 97.8 108 20 166/80 96 05/22/16 20:43 94 Nasal Cannula 2.00 05/22/16 20:00 98.7 96 30 166/77 93 05/22/16 20:00 96 05/22/16 18:00 100 I/O 05/22/16 05/22/16 05/22/16 05/23/16 05/23/16 05/23/16 07:00 15:00 23:00 07:00 15:00 23:00 Intake Total 678 ml 480 ml 100 ml 720 ml Balance 678 ml 480 ml 100 ml 720 ml Intake Oral 240 ml 480 ml 100 ml 720 ml IV Total 438 ml # Voids 2 1 4 2 # Bowel Movements 0 Result Diagram: 05/21/16 0552 05/21/16 0552 Objective Remarks GENERAL: MBMN Wh mild sob SKIN: Warm and dry. HEAD: Normocephalic. EYES: No scleral icterus. No injection or drainage. NECK: Supple, trachea midline. No JVD or lymphadenopathy. CARDIOVASCULAR: Regular rate and rhythm without murmurs, gallops, or rubs. RESPIRATORY: Breath sounds equal bilaterally. No accessory muscle use. Exp rhonchi GASTROINTESTINAL: Abdomen soft, non-tender, nondistended. MUSCULOSKELETAL: No cyanosis, or edema. BACK: Nontender without obvious deformity. No CVA tenderness. A/P Assessment and Plan COPD Exac Resp insuff Resp acidosis Anxiety Nicotine use H/O Ca lung PLAN: IV Solumedrol monitor BS Cont Levaquin Aerosol nebs Symbicort 2 puffs bid Dawood Love MD May 23, 2016 16:46
[2016-05-24] VITALS (9 sets, daily range): BP systolic 96–163; BP diastolic 65–91; PULSE 68–100; RESP 17–24; TEMP 96.6–97.1; O2SAT 93–98
[2016-05-24] MEDS: LORazepam 2 MG/ML VIAL IV PUSH PRN ×4 (00:04→18:33)
[2016-05-24] MEDS: ENOXAPARIN SODIUM 40 MG/0.4 ML SYRINGE SQ SCH (00:05)
[2016-05-24] MEDS: LEVOFLOXACIN 500 MG PREMIX INJ 100 ML IV SCH (00:05)
[2016-05-24] MEDS: SODIUM CHLOR 0.9% 1000 ML INJ 1,000 ML IV SCH ×3 (00:20→18:38)
[2016-05-24] MEDS: methylPREDNISolone SOD SUCC 125 MG/2 ML VIAL IV PUSH SCH ×3 (00:44→13:42)
[2016-05-24] MEDS: CHLORHEXIDINE GLUCONATE 2 % 1 PACK (2 CLOTHS) TOP SCH (03:14)
[2016-05-24] MEDS: RESP: ALBUTEROL 2.5 MG/IPRATROPIUM 0.5 MG NEB (SCH) INH (03:40)
[2016-05-24] MEDS: INSULIN NovoLIN REGULAR SUPPLEMENTAL SCALE SQ SCH ×4 (05:39→18:00)
[2016-05-24 07:21] LABS: AUTOMATED NEUTROPHIL # 7.3 TH/MM3 (1.8-7.7); BASOPHIL % 0.1 % (0.0-2.0); HEMATOCRIT 37.1 % (35.0-46.0); LYMPH % 8.2 % (9.0-44.0); LYMPHOCYTE # 0.7 TH/MM3 (1.0-4.8); MEAN CELL VOLUME 94.8 FL (80.0-100.0); MEAN CORPUSCULAR HEMOGLOBIN 31.9 PG (27.0-34.0); MEAN CORPUSCULAR HGB CONC 33.6 % (32.0-36.0); MONO % 5.9 % (0.0-8.0); NEUT % 85.8 % (16.0-70.0); PLATELET COUNT 315 TH/MM3 (150-450); RED BLOOD COUNT 3.91 MIL/MM3 (4.00-5.30); RED CELL DISTRIBUTION WIDTH 12.4 % (11.6-17.2); WHITE BLOOD COUNT 8.5 TH/MM3 (4.0-11.0)
[2016-05-24 07:25] LABS: HEMO FLAGS AUTO DIFF
[2016-05-24 07:48] LABS: BICARBONATE 34.3 MEQ/L (21.0-32.0); POTASSIUM 3.4 MEQ/L (3.5-5.1)
[2016-05-24 08:05] LABS: MYELOCYTES 1 % (0-0); NEUTROPHIL # MANUAL DIFF 7.5 TH/MM3 (1.8-7.7); POLYS (SEG NEUTROPHILS) 87 % (16-70); WBC DIFF SAMPLE 100
[2016-05-24 08:06] LABS: PLATELET ESTIMATE SMEAR NORMAL (NORMAL); PLATELET MORPHOLOGY NORMAL (NORMAL); SCAN/DIFF FINAL DIFF MANUAL
--- NOTE | 2016-05-24 09:31 | HHI.PR ---
Subjective Remarks f/u; copd exacerbation still with some sob although looks more comfortable today. has productive cough. no fever. Objective Vitals Vital Signs Date Time Temp Pulse Resp B/P Pulse Ox O2 Delivery O2 Flow Rate FiO2 05/24/16 09:01 93 Nasal Cannula 2.00 05/24/16 08:00 96.8 80 24 155/87 98 05/24/16 04:00 97.0 68 17 96/65 96 05/24/16 00:00 84 05/24/16 00:00 96.9 100 17 150/89 94 05/23/16 20:00 97.1 102 20 161/91 93 05/23/16 19:25 93 Nasal Cannula 2.00 05/23/16 16:00 97.0 110 24 159/92 96 05/23/16 13:00 96.0 94 24 136/74 95 I/O 05/23/16 05/23/16 05/23/16 05/24/16 05/24/16 05/24/16 07:00 15:00 23:00 07:00 15:00 23:00 Intake Total 100 ml 720 ml 240 ml Output Total 350 ml Balance 100 ml 720 ml -110 ml Intake Oral 100 ml 720 ml 240 ml Output Urine Total 350 ml # Voids 4 2 2 3 # Bowel Movements 0 Result Diagram: 05/24/1603 05/24/16 0603 Imaging Last Impressions Chest X-Ray 05/19/162140 Signed Impressions: Service Date/Time: Thursday, May 19, 2016 22:04 - CONCLUSION: 1. Scattered parenchymal scarring similar to January 2015, especially in the upper lungs. No new infiltrate or effusion. Martin Nguyen MD Objective Remarks GENERAL: with some sob although looks more comfortable today CARDIOVASCULAR: Regular rate and regular rhythm without murmurs, gallops, or rubs. RESPIRATORY: diminished air entry bilaterally GASTROINTESTINAL: Abdomen soft, non-tender, nondistended. Normal, active bowel sounds MUSCULOSKELETAL: Extremities without clubbing, cyanosis, or edema. NEURO: Alert & Oriented x4 to person, place, time, situation. Moves all ext x4 Medications and IVs Current Medications Cefepime HCl 2000 mg/Sodium Chloride 100 ml @ 200 mls/hr ONCE STAT IV Last administered on 05/19/16t 22:51; Start 05/19/16 at 21:41; Stop 05/19/16 at 22:10; Status DC Azithromycin/ Sodium Chloride (Zithromax Inj/ NS 250 ml Inj) 250 ml @ 250 mls/ hr ONCE STAT IV Last administered on 05/19/16 22:05; Start 05/19/16 at 21:41; Stop 05/19/16 at 22:40; Status DC Albuterol/ Ipratropium (Duoneb Neb) 1 ampule Q15M INH Last administered on 21:57; Start 05/19/16 at 21:45; Stop 05/19/16 at 22:16; Status DC Methylprednisolone Sodium Succinate (SoluMEDROL INJ) 125 mg ONCE ONCE IV ; Start 05/19/16 at 21:45; Stop 05/19/16 at 21:53; Status DC Lorazepam 1 mg 1 mg ONCE ONCE IV PUSH Last administered on 05/19/16 22:04; Start 05/19/16 at 21:45; Stop 05/19/16 at 21:46; Status DC Sodium Chloride 1,000 ml @ 1,000 mls/hr Q1H ONCE IV Last administered on 22:04; Start 05/19/16 at 21:52; Stop 05/19/16 at 22:51; Status DC Sodium Chloride 1,000 ml @ 1,000 mls/hr Q1H ONCE IV Last administered on 22:50; Start 05/19/16 at 21:52; Stop 05/19/16 at 22:51; Status DC Sodium Chloride (NS 1000 ml Inj) 100 ml @ 1,000 mls/hr Q6M ONCE IV Last administered on 05/19/16 23:51; Start 05/19/16 at 21:52; Stop 05/19/16 at 21:57; Status DC Albuterol/ Ipratropium (Duoneb Neb) 2 ampule ONCE ONCE NEB Last administered on 05/20/16 00:35; Start 05/20/16 at 00:30; Stop 05/20/16 at 00:31; Status DC Methylprednisolone Sodium Succinate (SoluMEDROL INJ) 60 mg Q6H IV PUSH Last administered on 05/24/16 06:19; Start 05/20/16 at 01:00 IV Flush (NS Flush) 2 ml UNSCH PRN IV FLUSH FLUSH AFTER USING IV ACCESS Last administered on 05/23/16 06:17; Start 05/20/16 at 00:30 IV Flush (NS Flush) 2 ml BID IV FLUSH Last administered on 05/22/16 19:40; Start 05/20/16 at 09:00 Acetaminophen (Tylenol) 650 mg Q6H PRN PO PAIN 1-10 AND/OR FEVER >101F; Start 05/20/16 at 00:30 Pantoprazole Sodium (Protonix Inj) 40 mg DAILY IV Last administered on 09:34; Start 05/20/16 at 09:00; Stop 05/23/16 at 09:52; Status DC Ondansetron HCl (Zofran Inj) 4 mg Q6H PRN IV NAUSEA OR VOMITING; Start 05/20/16 at 00:30 Docusate Sodium (Colace) 100 mg BID PO Last administered on 05/23/16 20:46; Start 05/20/16 at 09:00 Albuterol/ Ipratropium (Duoneb Neb) 1 ampule Q4HR NEB INH Last administered on 05/24/16 03:40; Start 05/20/16 at 04:00; Stop 05/24/16 at 04:00; Status DC Albuterol Sulfate (Albuterol Neb) 2.5 mg Q2HR NEB PRN INH SOB/WHEEZING; Start 05/20/16 at 00:30 Enoxaparin Sodium (Lovenox Inj) 40 mg Q24H SQ Last administered on 05/24/16 00: 05; Start 05/20/16 at 00:30 Miscellaneous Information 1 Q361D XX ; Start 05/20/16 at 00:30 Chlorhexidine Gluconate (Chlorhexidine 2% Cloth) 3 pack Taper DAILY@04 TOP Last administered on 05/24/16 03:14; Start 05/20/16 at 04:00; Stop 05/16/17 at 03: 59 Chlorhexidine Gluconate 3 pack 3 pack UNSCH PRN TOP HYGIENIC CARE; Start at 00:30 Levofloxacin/ Dextrose 100 ml @ 100 mls/hr Q48H IV Last administered on 00:05; Start 05/20/16 at 01:00 Potassium Chloride 100 ml @ 50 mls/hr Q2H PRN IV For Potassium 2.8 - 3.2 mEq/L ; Start 05/20/16 at 01:00; Stop 05/22/16 at 08:17; Status DC Potassium Chloride (KCl 20 Meq Premix Inj) 100 ml @ 50 mls/hr Q2H PRN IV For Potassium 2.8 - 3.2 mEq/L; Start 05/20/16 at 01:00; Stop 05/22/16 at 08:17; Status DC Potassium Chloride 40 meq 40 meq UNSCH PRN PO/TUBE For Potassium 3.3 - 3.5 mEq/ L; Start 05/20/16 at 01:00; Stop 05/22/16 at 08:17; Status DC Potassium Chloride 100 ml @ 25 mls/hr UNSCH PRN IV For Potassium 3.3 - 3.5 mEq /L; Start 05/20/16 at 01:00; Stop 05/22/16 at 08:17; Status DC Potassium Chloride 100 ml @ 50 mls/hr Q2H PRN IV For Potassium 3.3 - 3.5 mEq/L ; Start 05/20/16 at 01:00; Stop 05/22/16 at 08:18; Status DC Magnesium Sulfate/ Sodium Chloride (Magnesium Sulfate Inj/NS Inj) 100 ml @ 50 mls/hr UNSCH PRN IV For Magnesium 0.9 - 1.1 mg/dL; Start 05/20/16 at 01:00; Stop 05/22/16 at 08:18; Status DC Magnesium Oxide 800 mg 800 mg UNSCH PRN PO For Magnesium 1.2 - 1.6 mg/dL; Start 05/20/16 at 01:00; Stop 05/22/16 at 08:19; Status DC Magnesium Sulfate/ Sodium Chloride (Magnesium Sulfate Inj/NS Inj) 100 ml @ 50 mls/hr UNSCH PRN IV For Magnesium 1.2 - 1.6 mg/dL; Start 05/20/16 at 01:00; Stop 05/22/16 at 08:19; Status DC Potassium Phosphate 2000 mg 2,000 mg Q4H PRN PO For Phosphorus < 2.5 mg/dL; Start 05/20/16 at 01:00; Stop 05/22/16 at 08:19; Status DC Sodium Phosphate/ Sodium Chloride (Sodium Phosphate Inj/NS 250 ml Inj) 250 ml @ 42 mls/hr UNSCH PRN IV For Phosphorus < 2.5 mg/dL; Start 05/20/16 at 01:00; Stop 05/22/16 at 08:19; Status DC Potassium Chloride (KCl 40 Meq/30 ml Liq) 40 meq UNSCH PRN PO/TUBE SEE LABEL COMMENTS; Start 05/20/16 at 01:00; Stop 05/22/16 at 08:19; Status DC Potassium Phosphate 2000 mg 2,000 mg UNSCH PRN PO/TUBE SEE LABEL COMMENTS; Start 05/20/16 at 01:00; Stop 05/22/16 at 08:19; Status DC Potassium Phosphate/Sodium Chloride (Potassium Phosphate Inj/NS 250 ml Inj) 260 ml @ 42 mls/hr UNSCH PRN IV SEE LABEL COMMENTS; Start 05/20/16 at 01:00; Stop 05/22/16 at 08:19; Status DC Lorazepam (Ativan Inj) 0.5 mg Q6H PRN IV PUSH ANXIETY Last administered on 05:41; Start 05/20/16 at 01:00 Dextrose (D50w (Vial) Inj) 25 ml UNSCH PRN IV PUSH HYPOGLYCEMIA-SEE COMMENTS; Start 05/20/16 at 09:15 Glucagon (Glucagon Inj) 1 mg UNSCH PRN OTHER HYPOGLYCEMIA-SEE COMMENTS; Start 05/20/16 at 09:15 Insulin Human Regular 1 1 Q6HR SQ Last administered on 05/21/16 18:00; Start at 09:15 Sodium Chloride (NS 1000 ml Inj) 1,000 ml @ 75 mls/hr [id number] IV Last administered on 05/24/16 00:20; Start 05/20/16 at 09:15 Venlafaxine HCl (Effexor Xr) 150 mg DAILY PO Last administered on 05/23/16 09: 33; Start 05/21/16 at 14:00 Budesonide/ Formoterol Fumarate (Symbicort 160-4.5 Inh) 2 puff BID INH Last administered on 05/23/16 20:46; Start 05/21/16 at 21:00 Valsartan (Diovan) 80 mg DAILY PO Last administered on 05/23/16 09:33; Start at 10:00 Pantoprazole Sodium (Protonix) 40 mg DAILY PO ; Start 05/24/16 at 09:00 A/P Assessment and Plan A/P Acute hypercapnic respiratory failure due to COPD exacerbation Acute COPD exacerbation History of lung cancer continue Solu-Medrol DuoNeb every 4 hours. Albuterol every 2 hours when necessary. Antibiotics as per below. pulmonary following. Hypertension Monitor hemodynamics. Troponin negative. Lactic acid normal resumed Valsartan. Chronic kidney disease stage III Mild asymptomatic hyponatremia Monitor electrolytes and replace as needed. Anxiety Depression Continue venlafaxine 150 mg by mouth daily Ativan if needed for Bipap tolerance. DVT/ GI prophylaxis with lovenox/protonix continue PT. Richa Mars MD May 24, 2016 09:31
[2016-05-24] MEDS ORDERED: POTASSIUM CHLORIDE 20 MEQ CONTROLLED RELEASE TAB PO ONE (09:45)
[2016-05-24] MEDS: VALSARTAN 80 MG TAB PO SCH (09:52)
[2016-05-24] MEDS: PANTOPRAZOLE SOD 40 MG DELAYED RELEASE TAB PO SCH (09:52)
[2016-05-24] MEDS: VENLAFAXINE HCL XR 75 MG CAP PO SCH (09:52)
[2016-05-24] MEDS: DOCUSATE SODIUM 100 MG CAP PO SCH ×2 (09:53→20:32)
[2016-05-24] MEDS: SODIUM CHLORIDE 0.9% FLUSH 5 ML FLUSH IV FLUSH SCH ×2 (09:53→20:32)
[2016-05-24] MEDS: BUDESONIDE-FORMOTEROL 160/4.5 MCG INHALER INH SCH ×2 (09:53→20:32)
[2016-05-24] MEDS: RESP: ALBUTEROL 2.5 MG/3 ML NEB (PRN) INH ×2 (17:14→21:19)
--- NOTE | 2016-05-24 18:16 | HHI.PR ---
Subjective Remarks 76 YOWF with COPD exac, resp insuff wheezing improving Feels comfortable No Fever Less sob Ambulates in Hallway Objective Vital Signs Vital Signs Date Time Temp Pulse Resp B/P Pulse Ox O2 Delivery O2 Flow Rate FiO2 05/24/16 17:14 93 Nasal Cannula 2.00 05/24/16 16:00 96.6 86 20 142/69 95 05/24/16 12:00 97.1 84 20 163/91 93 05/24/16 09:01 93 Nasal Cannula 2.00 05/24/16 08:00 96.8 80 24 155/87 98 05/24/16 04:00 97.0 68 17 96/65 96 05/24/16 00:00 84 05/24/16 00:00 96.9 100 17 150/89 94 05/23/16 20:00 97.1 102 20 161/91 93 05/23/16 19:25 93 Nasal Cannula 2.00 I/O 05/23/16 05/23/16 05/23/16 05/24/16 05/24/16 05/24/16 07:00 15:00 23:00 07:00 15:00 23:00 Intake Total 100 ml 720 ml 240 ml 2325 ml Output Total 350 ml 1800 ml Balance 100 ml 720 ml -110 ml 525 ml Intake Oral 100 ml 720 ml 240 ml 1800 ml IV Total 525 ml Output Urine Total 350 ml 1800 ml # Voids 4 2 2 3 # Bowel Movements 0 Result Diagram: 05/24/16 0603 05/24/16 0603 Objective Remarks GENERAL: MBMN Wh mild sob SKIN: Warm and dry. HEAD: Normocephalic. EYES: No scleral icterus. No injection or drainage. NECK: Supple, trachea midline. No JVD or lymphadenopathy. CARDIOVASCULAR: Regular rate and rhythm without murmurs, gallops, or rubs. RESPIRATORY: Breath sounds equal bilaterally. No accessory muscle use. Exp rhonchi GASTROINTESTINAL: Abdomen soft, non-tender, nondistended. MUSCULOSKELETAL: No cyanosis, or edema. BACK: Nontender without obvious deformity. No CVA tenderness. A/P Assessment and Plan COPD Exac Resp insuff Resp acidosis Anxiety Nicotine use H/O Ca lung PLAN: monitor BS Cont Levaquin Aerosol nebs Symbicort 2 puffs bid Wean 02 Check RA 02 sat PO Steroids Dawood Love MD May 24, 2016 18:16
[2016-05-25] VITALS (9 sets, daily range): BP systolic 144–178; BP diastolic 74–97; PULSE 76–102; RESP 16–20; TEMP 96.4–98; O2SAT 92–98
[2016-05-25] MEDS: ENOXAPARIN SODIUM 40 MG/0.4 ML SYRINGE SQ SCH ×2 (00:23→22:57)
[2016-05-25] MEDS: LORazepam 2 MG/ML VIAL IV PUSH PRN ×4 (00:24→21:06)
[2016-05-25] MEDS: CHLORHEXIDINE GLUCONATE 2 % 1 PACK (2 CLOTHS) TOP SCH (04:00)
[2016-05-25] MEDS: INSULIN NovoLIN REGULAR SUPPLEMENTAL SCALE SQ SCH ×5 (05:41→23:00)
[2016-05-25] MEDS: DOCUSATE SODIUM 100 MG CAP PO SCH ×2 (09:00→21:00)
[2016-05-25] MEDS: PANTOPRAZOLE SOD 40 MG DELAYED RELEASE TAB PO SCH (09:08)
[2016-05-25] MEDS: predniSONE 10 MG TAB PO SCH ×3 (09:08→18:15)
[2016-05-25] MEDS: VALSARTAN 80 MG TAB PO SCH (09:08)
[2016-05-25] MEDS: VENLAFAXINE HCL XR 75 MG CAP PO SCH (09:08)
[2016-05-25] MEDS: SODIUM CHLORIDE 0.9% FLUSH 5 ML FLUSH IV FLUSH SCH ×2 (09:09→21:11)
[2016-05-25] MEDS: BUDESONIDE-FORMOTEROL 160/4.5 MCG INHALER INH SCH ×2 (09:10→21:11)
[2016-05-25] MEDS: RESP: ALBUTEROL 2.5 MG/3 ML NEB (PRN) INH ×3 (09:28→19:37)
[2016-05-25] MEDS ORDERED: ENALAPRILAT 1.25 MG/ML VIAL IV PRN (09:45)
[2016-05-25] MEDS ORDERED: cloNIDine HCL 0.1 MG TAB PO PRN (09:45)
--- NOTE | 2016-05-25 13:26 | HHI.PR ---
Subjective Remarks Follow-up COPD. Improving shortness of breath able to ambulate to nursing station tolerating 2 L nasal cannula. Seen with . Discussed with RN and case management, patient has oxygen concentrator at home. Objective Vitals Vital Signs Date Time Temp Pulse Resp B/P Pulse Ox O2 Delivery O2 Flow Rate FiO2 05/25/16 12:00 97.0 102 16 152/86 93 05/25/16 09:28 92 Nasal Cannula 2.00 05/25/16 08:00 96.7 88 20 178/97 98 05/25/16 04:00 96.6 76 18 144/74 98 05/25/16 00:00 97.9 99 19 163/95 95 05/24/16 20:00 96.6 92 19 150/77 98 05/24/16 20:00 91 05/24/16 17:14 93 Nasal Cannula 2.00 05/24/16 16:00 96.6 86 20 142/69 95 I/O 05/24/16 05/24/16 05/24/16 05/25/16 05/25/16 05/25/16 07:00 15:00 23:00 07:00 15:00 23:00 Intake Total 2325 ml 480 ml 240 ml 960 ml Output Total 1800 ml Balance 525 ml 480 ml 240 ml 960 ml Intake Oral 1800 ml 480 ml 240 ml 960 ml IV Total 525 ml Output Urine Total 1800 ml # Voids 3 3 2 4 # Bowel Movements 0 0 1 Result Diagram: 05/24/16 0603 05/24/16 0603 Imaging Last Impressions Chest X-Ray 05/19/16 2141 Signed Impressions: Service Date/Time: Thursday, May 19, 2016 22:04 - CONCLUSION: 1. Scattered parenchymal scarring similar to January 2015, especially in the upper lungs. No new infiltrate or effusion. Martin Nguyen MD Objective Remarks GENERAL: Well-developed, asthenic in no distress on 2 L nasal cannula CARDIOVASCULAR: Regular rate and regular rhythm without murmurs, gallops, or rubs. RESPIRATORY: diminished air entry bilaterally GASTROINTESTINAL: Abdomen soft, non-tender, nondistended. Normal, active bowel sounds MUSCULOSKELETAL: Extremities without clubbing, cyanosis, or edema. NEURO: Alert & Oriented x4 to person, place, time, situation. Moves all ext x4 Procedures none A/P Problem List: (1) COPD exacerbation ICD Code: J44.1 Status: Acute (2) Hypercapnic respiratory failure ICD Code: J96.92 Status: Acute Assessment and Plan Acute hypercapnic respiratory failure due to COPD exacerbation Acute COPD exacerbation History of lung cancer Improved tolerating nasal cannula. DuoNeb every 4 hours. Albuterol every 2 hours when necessary. Discontinue Levaquin already received a total 7 day course pulmonary following. Hypertension Monitor hemodynamics. Troponin negative. Lactic acid normal resumed Valsartan. BP improving Chronic kidney disease stage III. Creatinine improving Mild asymptomatic hyponatremia Monitor electrolytes and replace as needed. Anxiety Depression Continue venlafaxine 150 mg by mouth daily Ativan if needed for Bipap tolerance. DVT/ GI prophylaxis with lovenox/protonix Continue PT. Discharge Planning Stable for discharge Problem Qualifiers (1) Hypercapnic respiratory failure: Qualified Code: J96.02 - Acute respiratory failure with hypercapnia Antolin Beasley MD May 25, 2016 13:26
[2016-05-25] MEDS ORDERED: PRED10 PO (13:29)
--- NOTE | 2016-05-25 13:30 | HHI.DCPOC ---
Discharge Care Plan Diagnosis: (1) COPD exacerbation (2) Hypercapnic respiratory failure Your Health Problems Are: Difficulty with ADL Exercise Tolerance Goals to Promote Your Health * To prevent worsening of your condition and complications * To maintain your health at the optimal level Directions to Meet Your Goals Take your medications as prescribed Follow your dietary instruction Follow activity as directed Keep your appointments as scheduled Take your immunizations and boosters as scheduled If your symptoms worsen call your PCP, if no PCP go to Urgent Care Center or Emergency Room Smoking is Dangerous to Your Health. Avoid second hand smoke Call the 24-hour hour crisis hotline for domestic abuse at Antolin Beasley MD May 25, 2016 13:30
--- NOTE | 2016-05-25 13:31 | HHI.DS ---
Discharge Summary Admission Date May 20, 2016 at 00:04 Discharge Date: May 26, 2016 Admitting Diagnosis hypercapnic respiratory failure, COPD exacerbation (1) COPD exacerbation ICD Code: J44.1 Diagnosis: Principal (2) Hypercapnic respiratory failure ICD Code: J96.92 Diagnosis: Principal Procedures none Brief History - From Admission History somewhat limited because patient is on Bipap. Removed briefly to clarify code status but she was tachypneic and unable to provide a lot of detail regarding medical history. 76-year-old female with a past medical history of COPD, ongoing tobacco abuse, lung cancer who presents to [facility] emergency department with 2 day history of shortness of breath and cough. She states the cough has been productive of yellow and green sputum. Denies fever. Denies chest pain or hemoptysis. Denies recent travel, leg pain or swelling, or history of VTE. She received Solu-Medrol 125 mg IV. [facility]. She was given hour-long continuous DuoNeb in the ED, cefepime, azithromycin, Ativan 1 mg IV, normal saline 3 L bolus.. She was placed on BiPAP 03/20 with initial FiO2 of 100% for hypercapnic respiratory failure with pH 7.26/PaCO2 of 61/PaCO2 of 321. FiO2 has been weaned and she is currently on 03/20 with FiO2 35% getting tidal volumes in the 200s. Her repeat ABG demonstrates a pH of 7.22/ PaCO2 58/PA O2 of 88. She reports subjective improvement. She indicates that she would desire intubation if needed. CBC/BMP: 05/24/16 0603 05/24/16 0603 Significant Findings Laboratory Tests Test 05/24/16 06:03 Red Blood Count 3.91 MIL/MM3 (4.00-5.30) Neutrophils (%) (Auto) 85.8 % (16.0-70.0) Lymphocytes (%) (Auto) 8.2 % (9.0-44.0) Lymphocytes # (Auto) 0.7 TH/MM3 (1.0-4.8) Neutrophils % (Manual) 87 % (16-70) Lymphocytes % 4 % (9-44) Myelocytes 1 % (0-0) Potassium Level 3.4 MEQ/L (3.5-5.1) Carbon Dioxide Level 34.3 MEQ/L (21.0-32.0) Estimat Glomerular Filtration 64 ML/MIN (>89) Rate Random Glucose 114 MG/DL (74-106) Imaging Last Impressions Chest X-Ray 05/19/16 2761 Signed Impressions: Service Date/Time: Thursday, May 19, 2016 22:04 - CONCLUSION: 1. Scattered parenchymal scarring similar to January 2015, especially in the upper lungs. No new infiltrate or effusion. Martin Nguyen MD PE at Discharge GENERAL: Well-developed, asthenic in no distress on 2 L nasal cannula CARDIOVASCULAR: Regular rate and regular rhythm without murmurs, gallops, or rubs. RESPIRATORY: diminished air entry bilaterally GASTROINTESTINAL: Abdomen soft, non-tender, nondistended. Normal, active bowel sounds MUSCULOSKELETAL: Extremities without clubbing, cyanosis, or edema. NEURO: Alert & Oriented x4 to person, place, time, situation. Moves all ext x4 Hospital Course Acute hypercapnic respiratory failure due to COPD exacerbation Acute COPD exacerbation History of lung cancer Improved tolerating nasal cannula. DuoNeb every 4 hours. Albuterol every 2 hours when necessary. Discontinue Levaquin already received a total 7 day course. Will need home oxygen pulmonary following. Hypertension Monitor hemodynamics. Troponin negative. Lactic acid normal resumed Valsartan. BP improving consider Norvasc Chronic kidney disease stage III. Creatinine improving Mild asymptomatic hyponatremia Monitor electrolytes and replace as needed. Anxiety Depression Continue venlafaxine 150 mg by mouth daily Ativan if needed for Bipap tolerance. Atarax as needed DVT/ GI prophylaxis with lovenox/protonix Continue PT. Pt Condition on Discharge: Stable Discharge Disposition: Discharge Home Discharge Time: <= 30 minutes Discharge Instructions DIET: Follow Instructions for: Heart Healthy Diet Activities you can perform: Regular-No Restrictions Activities to Avoid: Driving Follow up Referrals: Appointment for Follow Up with Pulmonary rehab PCP Follow-up - 1 Week Pulmonology - 1 Week New Medications: Oxygen tank (Oxygen tank) 1 Ea Tank 2 LITER GREG.CANULA CONTINUOUS Oxygen Concentrator Portable Gaseous 2 L/min via Nasal Cannula Continuous For 99 months HYPOXEMIA PREVENTION #1 CYLINDER Prednisone (Prednisone) 10 Mg Tab 10 MG PO BID Take one pill 2 times a day for 3 days then 1 pill once a day for 3 days Control Inflammation #10 TAB Continued Medications: Fluticasone-Salmeterol Inh (Advair Diskus Inh) 250-50 Mcg/Blist Aer 2 PUFF INH BID Rinse mouth after use. #1 Ref 0 INHALER Lorazepam (Lorazepam) 1 Mg Tab 1 MG PO Q8H PRN ANXIETY Ref 0 TAB Pantoprazole (Pantoprazole) 40 Mg Tab 40 MG PO BID Reflux #30 Ref 0 TAB Prednisone (Prednisone) 5 Mg Tab 5 MG PO DAILY Start day after prednisone taper Ref 0 TAB Valsartan (Valsartan) 80 Mg Tab 80 MG PO DAILY #30 Ref 0 TAB Venlafaxine ER 24 HR (Venlafaxine ER 24 HR) 150 Mg Tab 150 MG PO DAILY #30 Ref 0 TAB Antolin Beasley MD May 25, 2016 13:31
[2016-05-25] MEDS ORDERED: OXYGENTANK NAS.CANULA (16:48)
--- NOTE | 2016-05-25 18:02 | HHI.PR ---
Subjective Remarks 76 YOWF with COPD exac, resp insuff Feels comfortable No Fever Less sob Ambulates in Hallway Objective Vital Signs Vital Signs Date Time Temp Pulse Resp B/P Pulse Ox O2 Delivery O2 Flow Rate FiO2 05/25/16 16:00 98.0 93 16 157/84 93 05/25/16 12:00 97.0 102 16 152/86 93 05/25/16 09:28 92 Nasal Cannula 2.00 05/25/16 08:00 96.7 88 20 178/97 98 05/25/16 04:00 96.6 76 18 144/74 98 05/25/16 00:00 97.9 99 19 163/95 95 05/24/16 20:00 96.6 92 19 150/77 98 05/24/16 20:00 91 I/O 05/24/16 05/24/16 05/24/16 05/25/16 05/25/16 05/25/16 07:00 15:00 23:00 07:00 15:00 23:00 Intake Total 2325 ml 480 ml 240 ml 1460 ml 350 ml Output Total 1800 ml Balance 525 ml 480 ml 240 ml 1460 ml 350 ml Intake Oral 1800 ml 480 ml 240 ml 1460 ml 350 ml IV Total 525 ml Output Urine Total 1800 ml # Voids 3 3 2 4 2 # Bowel Movements 0 0 1 Result Diagram: 05/24/16 0603 05/24/16 0603 Objective Remarks GENERAL: MBMN Wh mild sob SKIN: Warm and dry. HEAD: Normocephalic. EYES: No scleral icterus. No injection or drainage. NECK: Supple, trachea midline. No JVD or lymphadenopathy. CARDIOVASCULAR: Regular rate and rhythm without murmurs, gallops, or rubs. RESPIRATORY: Breath sounds equal bilaterally. No accessory muscle use. Exp rhonchi GASTROINTESTINAL: Abdomen soft, non-tender, nondistended. MUSCULOSKELETAL: No cyanosis, or edema. BACK: Nontender without obvious deformity. No CVA tenderness. A/P Assessment and Plan COPD Exac Resp insuff Resp acidosis Anxiety Nicotine use H/O Ca lung PLAN: monitor BS Cont Levaquin Aerosol nebs Symbicort 2 puffs bid Wean 02 Check RA 02 sat PO Steroids Stable from Pulm standpoint Available prn over weekend. Dawood Love MD May 25, 2016 18:02
[2016-05-26 00:25] VITALS: BP 141/71; PULSE 85; RESP 16; TEMP 97.4; O2SAT 95
[2016-05-26] MEDS: CHLORHEXIDINE GLUCONATE 2 % 1 PACK (2 CLOTHS) TOP SCH (00:58)
[2016-05-26 04:00] VITALS: BP 157/88; PULSE 76; RESP 16; TEMP 96.8; O2SAT 96
[2016-05-26] MEDS: INSULIN NovoLIN REGULAR SUPPLEMENTAL SCALE SQ SCH ×2 (06:00→12:00)
[2016-05-26 07:50] VITALS: BP 168/85; PULSE 89; RESP 20; TEMP 96.3; O2SAT 90
[2016-05-26 08:03] VITALS: O2SAT 90
[2016-05-26] MEDS: RESP: ALBUTEROL 2.5 MG/3 ML NEB (PRN) INH ×2 (08:03→13:39)
[2016-05-26] MEDS: PANTOPRAZOLE SOD 40 MG DELAYED RELEASE TAB PO SCH (08:25)
[2016-05-26] MEDS: VALSARTAN 80 MG TAB PO SCH (08:25)
[2016-05-26] MEDS: VENLAFAXINE HCL XR 75 MG CAP PO SCH (08:25)
[2016-05-26] MEDS: DOCUSATE SODIUM 100 MG CAP PO SCH (08:25)
[2016-05-26] MEDS: predniSONE 10 MG TAB PO SCH ×2 (08:25→13:53)
[2016-05-26] MEDS: SODIUM CHLORIDE 0.9% FLUSH 5 ML FLUSH IV FLUSH SCH (08:26)
[2016-05-26] MEDS: BUDESONIDE-FORMOTEROL 160/4.5 MCG INHALER INH SCH (08:26)
[2016-05-26] MEDS: LORazepam 2 MG/ML VIAL IV PUSH PRN (08:33)
--- NOTE | 2016-05-26 12:03 | HHI.PR ---
Subjective Remarks Follow-up COPD. Developed shortness of breath after saturation dropped in the 70s when she was taken off oxygen. She looks anxious. She still wants to go home stating her shortness of breath has improved Objective Vitals Vital Signs Date Time Temp Pulse Resp B/P Pulse Ox O2 Delivery O2 Flow Rate FiO2 05/26/16 08:03 90 Nasal Cannula 1.00 05/26/16 07:50 96.3 89 20 168/85 90 05/26/16 04:00 96.8 76 16 157/88 96 05/26/16 00:25 97.4 85 16 141/71 95 05/25/16 21:00 87 05/25/16 20:00 96.4 99 18 150/75 94 05/25/16 19:39 94 Nasal Cannula 1.50 05/25/16 16:00 98.0 93 16 157/84 93 I/O 05/25/16 05/25/16 05/25/16 05/26/16 05/26/16 05/26/16 07:00 15:00 23:00 07:00 15:00 23:00 Intake Total 240 ml 1460 ml 800 ml 300 ml Output Total 601 ml 550 ml Balance 240 ml 1460 ml 199 ml -250 ml Intake Oral 240 ml 1460 ml 800 ml 300 ml Output Urine Total 600 ml 550 ml Stool Total 1 ml # Voids 2 4 2 # Bowel Movements 0 1 0 Result Diagram: 05/24/16 0603 05/24/16 0603 Imaging Last Impressions Chest X-Ray 05/19/16 2141 Signed Impressions: Service Date/Time: Thursday, May 19, 2016 22:04 - CONCLUSION: 1. Scattered parenchymal scarring similar to January 2015, especially in the upper lungs. No new infiltrate or effusion. Martin Nguyen MD Objective Remarks GENERAL: Well-developed, asthenic in no distress on 2 L nasal cannula CARDIOVASCULAR: Regular rate and regular rhythm without murmurs, gallops, or rubs. RESPIRATORY: diminished air entry bilaterally with mild expiratory wheeze GASTROINTESTINAL: Abdomen soft, non-tender, nondistended. Normal, active bowel sounds MUSCULOSKELETAL: Extremities without clubbing, cyanosis, or edema. NEURO: Alert & Oriented x4 to person, place, time, situation. Moves all ext x4 Procedures none A/P Problem List: (1) COPD exacerbation ICD Code: J44.1 Status: Acute (2) Hypercapnic respiratory failure ICD Code: J96.92 Status: Acute Assessment and Plan Acute hypercapnic respiratory failure due to COPD exacerbation Acute COPD exacerbation History of lung cancer Improved tolerating nasal cannula. DuoNeb every 4 hours. Albuterol every 2 hours when necessary. Discontinue Levaquin already received a total 7 day course. Will need home oxygen pulmonary following. Hypertension Monitor hemodynamics. Troponin negative. Lactic acid normal resumed Valsartan. BP improving consider Norvasc Chronic kidney disease stage III. Creatinine improving Mild asymptomatic hyponatremia Monitor electrolytes and replace as needed. Anxiety Depression Continue venlafaxine 150 mg by mouth daily Ativan if needed for Bipap tolerance. Atarax as needed DVT/ GI prophylaxis with lovenox/protonix Continue PT. Discharge Planning Stable for discharge if able to ambulate with improved wheezing Problem Qualifiers (1) Hypercapnic respiratory failure: Qualified Code: J96.02 - Acute respiratory failure with hypercapnia Antolin Beasley MD May 26, 2016 12:03
[2016-05-26] MEDS ORDERED: hydrOXYzine HCL 10 MG TAB PO PRN (12:15)
[2016-05-26 12:57] VITALS: BP 161/76; PULSE 101; RESP 20; TEMP 96.8; O2SAT 92
== END 2016-05-26 14:54 | disposition home or self-care (01) | DRG 189 ==
LOC: NEPE 21:34 → NEDA 05-20 00:04 → HIMN 05-20 03:25 → HOCA 05-22 22:02
PROVIDERS: ADMIT Internal Medicine; ATTEND Internal Medicine
PROC: 5A09357 Assistance with Respiratory Ventilation, Less than 24 Consecutive Hours, Continuous Positive Airway Pressure (ICD-10-PCS; principal; 2016-05-19)
DX: J96.02 Acute respiratory failure with hypercapnia (principal); E87.2 Acidosis; J44.0 Chronic obstructive pulmonary disease with (acute) lower respiratory infection; J44.1 Chronic obstructive pulmonary disease with (acute) exacerbation; E87.1 Hypo-osmolality and hyponatremia; N18.3 Chronic kidney disease, stage 3 (moderate); Z85.118 Personal history of other malignant neoplasm of bronchus and lung; J45.909 Unspecified asthma, uncomplicated; M19.90 Unspecified osteoarthritis, unspecified site; F41.9 Anxiety disorder, unspecified; F32.9 Major depressive disorder, single episode, unspecified; K21.9 Gastro-esophageal reflux disease without esophagitis; I12.9 Hypertensive chronic kidney disease with stage 1 through stage 4 chronic kidney disease, or unspecified chronic kidney disease; F17.210 Nicotine dependence, cigarettes, uncomplicated; J20.9 Acute bronchitis, unspecified; Z92.3 Personal history of irradiation; Z79.52 Long term (current) use of systemic steroids
CPT/HCPCS: 36600; 71010; 76937; 80048; 82805; 82948; 83605; 83735; 84100; 84484; 85007; 85025; 85027; 85610; 85730; 87040; 87641; 87804; 93005; 94002; 94003; 94150; 94620; 94640; 94664; 96365; 96367; 96375; C9113; J0456; J0692; J1650; J1956; J2060; J2930; J7030; J7050; J7512; J7613